=== PATIENT | male | born 1995 | race African-American/Black ===

== ENCOUNTER 2024-07-10 10:05 | Emergency (ER) | payer OTHER, SELFPAY ==
[2024-07-10 10:11] VITALS: BP 121/81; PULSE 100; RESP 16; TEMP 36.8; O2SAT 97; BMI 20.6
--- NOTE | 2024-07-10 10:22 | EDNOTE_ITS ---
ED General RME/HPI General Chief complaint: General Adult/Misc Complain Stated complaint: BILATERAL LEG PAIN Time Seen by Provider: 07/10/24 10:06 Arrival date/time: 07/10/24 10:05 Limitations: no limitations RME / HPI RME / HPI narrative: History of Present Illness (HPI): * Chief Complaint: The patient presents with bilateral lower extremity pain that has been ongoing for 3 days. The pain is described as worsening with walking. The patient reports a previous episode of back pain about 2 weeks ago, which spontaneously resolved. However, the current bilateral leg pain has been persistent for the past few days. * Onset and Character of Pain: The patient?s lower extremity pain started 3 days ago, with walking being a trigger. This suggests that the pain may be musculoskeletal or neurological in origin. * Relevant History: * The patient has a history of back pain that occurred two weeks ago and resolved without treatment. This might indicate a musculoskeletal issue or a nerve involvement (e.g., radiculopathy), though it could also be a clue to a more systemic or neurological cause. * The patient also receives monthly injections of haloperidol (an antipsychotic), with the second dose administered about a week ago. Haloperidol is commonly used for psychiatric conditions such as schizophrenia or for acute agitation, and it has side effects that could be relevant to this presentation. Potential Differential Diagnosis: The patient?s bilateral lower extremity pain could stem from a number of causes, including: * Extrapyramidal Symptoms (EPS) from Haloperidol: * Haloperidol can cause drug-induced parkinsonism or other extrapyramidal side effects (e.g., akathisia, dystonia), which can sometimes present as m uscle rigidity, pain, and bradykinesia. These effects are often seen with d opamine antagonists and could explain the patient's lower extremity pain. The fact that this pain began after the second dose of haloperidol raises concern for neuroleptic-induced muscle discomfort or rigidity. * Spinal or Nerve Root Involvement (Radiculopathy): * The prior history of back pain could suggest that the patient has a history of lumbar radiculopathy, where nerve compression in the spine (such as from a herniated disc or spinal stenosis) can radiate pain into the lower extremities. If the pain worsens with walking, it may be related to n eurogenic claudication or a spinal stenosis issue. * Peripheral Vascular Disease (PVD) or Claudication: * Intermittent claudication (pain with walking due to insufficient blood flow) could be a possibility if there are risk factors like smoking, diabetes, or atherosclerosis, though the patient hasn't mentioned these explicitly. * Musculoskeletal Strain: * The pain could be secondary to a musculoskeletal strain or overuse injury, though the bilateral nature and worsening with walking makes a musculoskeletal origin less likely than a neurological or vascular issue. * Medication Side Effects or Withdrawal: * Although haloperidol is not typically associated with direct withdrawal effects, it?s worth considering whether the medication is contributing to m uscle discomfort, tardive dyskinesia, or another medication-related side effect. If the patient has other medication changes or a history of inconsistent use, this could be a consideration. * Infection or Inflammatory Condition: * Infections like cellulitis or deep vein thrombosis (DVT) could present with bilateral pain, though these are less likely to cause pain only with walking and typically would present with additional symptoms like fever, redness, or swelling. * Electrolyte Imbalance or Neuropathy: * If the patient is on other medications or has an underlying electrolyte imbalance, such as hypokalemia, it could lead to muscle cramping and pain. Peripheral neuropathy (possibly due to diabetes or other causes) could also be a consideration if there are other risk factors or symptoms like tingling or numbness. Related Data Allergies Allergy/AdvReac Type Severity Reaction Status Date / Time No Known Allergies Allergy Verified 07/10/24 10:48 Review of Systems Review of Systems Systems Reviewed: All systems reviewed, normal except as documented ED Exam Narrative Physical exam: Skeletal survey is unremarkable. Patient is slow to ambulate, however his walking is normal. General Limitations: Present no limitations General appearance: Present alert and in no apparent distress Head Head exam: Present atraumatic Eye Eye exam: Present normal appearance ENT ENT exam: Present normal exam Chest Chest inspection: Present normal inspection Respiratory Respiratory exam: Present normal lung sounds bilaterally Cardiovascular Cardiovascular exam: Present regular rate and normal rhythm Abdominal Exam Abdominal exam: Present soft and normal bowel sounds Rectal Exam Rectal exam: Present deferred Extremities Exam Extremities exam: Present normal inspection, full ROM and other (No muscle spasm. No tenderness to palpation. Neurovascular status of both lower extremities are within normal limits. Essentially, examination of the bilateral lower extremities is unremarkable) Course Quality Measures none Orders Category Date Time Status CK [Creatine Kinase] Stat Lab 07/10/24 10:39 Completed CMP [Comprehensive Metabolic Panel] Stat Lab 07/10/24 10:39 Completed Magnesium Stat Lab 07/10/24 10:39 Completed Hyoscyamine Sulf [Levsin] Med 07/10/24 12:03 Discontinued 0.125 mg PO X1 ONE mg Hyd/Al Hyd/Carmelo Susp [Maalox Susp] Med 07/10/24 12:03 Discontinued 30 ml PO X1 ONE Vital Signs Vital signs: Vital Signs Temperature 98.2 F 07/10/24 10:11 Pulse Rate 100 07/10/24 10:11 Respiratory Rate 16 07/10/24 10:11 Blood Pressure 121/81 07/10/24 10:11 Pulse Oximetry (%) 97 07/10/24 10:11 Oxygen Delivery Method Room Air 07/10/24 10:11 [facility] Patient data External records reviewed:: [facility] previous records Clinical information provided by:: patient Social determinants that could affect healthcare access:: none Patient has the following chronic illnesses:: NA How is presenting disease/condition affected by chronic disease/condition?: no chronic disease Evaluation data The following diagnostics were reviewed and interpreted by me:: lab results Lab and/or radiology exams considered but not ordered:: Noted Interpretation Summary: Noted Medications Medications considered but not ordered:: NA Medication administrations:: Medication Administration History Discontinued Medications Al Hydrox/Mg Hydrox/Simethicone (Mg Hyd/Al Hyd/Carmelo (Maalox Reg) Susp 30 Ml Udc) 30 ml PO X1 ONE Stop: 07/10/24 12:04 Last Admin: 07/10/24 12:23 Dose: Not Given Documented By: ARF Non-Admin Reason: Wrong Patient Hyoscyamine (Hyoscyamine Sulf 0.125 Mg Tab.Subl) 0.125 mg PO X1 ONE Stop: 07/10/24 12:04 Last Admin: 07/10/24 12:23 Dose: Not Given Documented By: ARF Non-Admin Reason: Wrong Patient Noted Consultations Consultation(s) initiated? (list below): No Diagnosis Differential Diagnosis ED Complaint MDM: NA Most likely diagnosis given after review of the tests above:: Leg pain BL Admission Indicated Admission indicated?: not indicated Explain why admission is indicated or not indicated:: NA Admission Request Was there a request for admission?: No Disposition Plan Disposition Plan: Discharge Discharge Attestation Discharge Attestation: The patient and all family members were given an opportunity to ask questions and understood the discharge instructions. Discharge instructions specifically effects, indications for sooner follow up or return to the emergency department, and the expected course of current diagnosis. Patient condition: Stable Medical Decision Making Differential Diagnosis Differential Diagnosis: NA Lab Data 07/10/24 10:39 Labs: Lab Results 07/10/24 Range/Units 10:39 Sodium 137 (136-145) mMol/L Potassium 3.8 (3.4-5.1) mMol/L Chloride 102 (98-107) mMol/L Carbon Dioxide 28.4 (20.0-31.0) mMol/L Anion Gap 7 (7-16) BUN 14 (9-23) mg/dL Creatinine 0.8 (0.6-1.3) mg/dL Estim Creat Clear Calc 141.6 (>60) mL/min eGFR > 60 (60 - ) See Note BUN/Creatinine Ratio 18 (12-20) Ratio Glucose 135 H (74-106) mg/dL Calculated Osmolality 276 (275-295) Calcium 9.7 (8.3-10.6) mg/dL Corrected Calcium 9.7 (8.5-10.1) mg/dL Magnesium 2.0 (1.6-2.6) mg/dL Total Bilirubin 0.7 (0.3-1.2) mg/dL AST 13 (0-34) U/L ALT 12 (10-49) U/L Alkaline Phosphatase 76 (46-116) U/L Total Creatine Kinase 58 (34-171) U/L Total Protein 7.5 (5.7-8.2) gm/dL Albumin 4.4 (3.5-5.0) gm/dL Globulin 3.1 (2.3-3.5) gm/dL Albumin/Globulin Ratio 1.4 (1.2-2.2) Critical Care Time Critical Care Time Critical Care Time: Yes Total Critical Care Time (min.): 30 Attestation: The high probability of sudden, clinically significant deterioration in the patient?s condition required the highest level of my preparedness to intervene urgently. ? The services I provided to this patient were to treat and/or prevent clinically significant deterioration. Services included the following: chart data review, reviewing nursing notes and/or old charts, documentation time, beauty consultant collaboration regarding findings and treatment options, medication orders and management, direct patient care, vital sign assessments and ordering, interpreting and reviewing diagnostic studies and lab tests. ? Aggregate critical care time includes only time during which I was engaged in work directly related to the patient?s care, as described above, whether at bedside or elsewhere in the Emergency Department. It did not include time spent performing other reported procedures or the services of residents, students, nurses or physician assistants. Discharge Plan Plan Patient Disposition: Usp/Court/Law Patient condition on transfer: Stable Prescriptions/Referrals Referrals: No Primary/Family,Physician [Primary Care Provider] - In 1 week Problem List Clinical Impression: Bilateral leg pain Patient/Caregiver Discharge Instructions Discharge Activity: activity as tolerated Education Materials: Complementary [facility] for Pain Print Language: Czech
[2024-07-10 11:10] LABS: Alanine Aminotransferase 12 U/L (10-49); Albumin, Serum 4.4 gm/dL (3.5-5.0); Albumin/Globulin Ratio 1.4 (1.2-2.2); Alkaline Phosphatase 76 U/L (46-116); Anion Gap 7 (7-16); Aspartate Amino Transferase 13 U/L (0-34); BUN/Creatinine Ratio 18 Ratio (12-20); Bilirubin,Total 0.7 mg/dL (0.3-1.2); Blood Urea Nitrogen 14 mg/dL (9-23); Calcium 9.7 mg/dL (8.3-10.6); Calcium (Corrected) 9.7 mg/dL (8.5-10.1); Carbon Dioxide 28.4 mMol/L (20.0-31.0); Chloride 102 mMol/L (98-107); Creatine Kinase 58 U/L (34-171); Creatinine (Component) 0.8 mg/dL (0.6-1.3); Estimated Creatinine Clearance 141.6 mL/min (>60); Globulin 3.1 gm/dL (2.3-3.5); Glucose 135 mg/dL (74-106); Osmolality,Calculated 276 (275-295); Potassium 3.8 mMol/L (3.4-5.1); Sodium 137 mMol/L (136-145); Total Protein 7.5 gm/dL (5.7-8.2); eGFR > 60 See Note
[2024-07-10 13:05] VITALS: BP 114/73; PULSE 112; RESP 18; TEMP 37.3; O2SAT 98
== END 2024-07-10 14:12 ==
PROVIDERS: Emergency Provider Emergency Medicine
DX: M79.604 Pain in right leg (principal); M79.605 Pain in left leg
CPT/HCPCS: 36415; 80053; 82550; 83735; 99283

== ENCOUNTER 2024-07-13 17:30 | Emergency (ER) | payer OTHER, SELFPAY ==
[2024-07-13] VITALS (7 sets, daily range): BP systolic 109–129; BP diastolic 71–83; PULSE 96–123; RESP 17–20; TEMP 36.8–36.9; O2SAT 95–100
--- NOTE | 2024-07-13 17:53 | EDNOTE_ITS ---
ED General RME/HPI General Chief complaint: General Adult/Misc Complain Stated complaint: ABNORMAL LABS Time Seen by Provider: 07/13/24 17:50 Arrival date/time: 07/13/24 17:30 CC: Decreased appetite constipation elevated white blood cell count and anemia. HPI patient presents the ER with a guard and a psych counselor, as the patient is a psychiatric incarcerated patient. The patient can be combative at times as warned by the psychiatric counselor. Patient denies fever chills chest pain shortness of breath or difficulty breathing states he urinated this morning states he has not been hungry for meals in the past several days. Chart work from the facility show the patient had a leukocytosis of 15,000 and hemoglobin of 9. Related Data Allergies Allergy/AdvReac Type Severity Reaction Status Date / Time No Known Allergies Allergy Verified 07/10/24 10:48 Review of Systems Review of Systems Narrative Review of Systems: GEN: No fever, no chills, no weight loss EYES: No discharge, no visual changes, no pain HEENT: No ear pain, no congestion, no sore throat PULM: No shortness of breath, no cough, no congestion CV: No chest pain, no dyspnea on exertion, no palpitations GI: No nausea, no vomiting, no diarrhea, no pain, no constipation : No frequency, no urgency, no dysuria MUSC/SKEL: No joint pain, no back pain SKIN: No rash PSYCH: No hallucinations, no depression HEME/LYMPH: No easy bleeding or bruising tendencies NEURO: No weakness, no headache Past Medical History Social History SMOKING STATUS: Never smoker ED Exam Narrative Physical exam: [General: Thin but not emaciated appears not in any acute distress Head normocephalic HEENT: Within acceptable limits Neck is supple nontender Chest equal chest rise nontender to palpation Respiratory: Clear to auscultation no wheezes crackles or rubs CV: Rate rhythm is regular no murmurs rubs or clicks Abdomen is soft nontender no masses positive bowel sounds all 4 quadrants Back: No CVA tenderness no spinous process tenderness from cervical spine thoracic and lumbar spine Skin: Intact no petechiae rash induration ulceration or crepitus Extremities: Moving all extremity against resistance cap refill less than 2 seconds neurosensory intact Neuro: Awake alert oriented x3 Glascow coma 15 no focal deficits] Course Quality Measures none Orders Category Date Time Status CT Screening NOW Care 07/13/24 19:09 Active Enema Administration NOW Care 07/13/24 21:[address] angio chest Stat Exams 07/13/24 19:09 Completed CBC Stat Lab 07/13/24 16:03 Completed CMP [Comprehensive Metabolic Panel] Stat Lab 07/13/24 16:03 Completed Creatine Kinase Stat Lab 07/13/24 16:03 Completed Urinalysis Stat Lab 07/13/24 19:35 Completed Sodium Chloride 0.9% 1000 ml [Ns] 1,000 ml Med 07/13/24 17:52 Discontinued IV 999 mls/hr Sodium Chloride 0.9% 1000 ml [Ns] 1,000 ml Med 07/13/24 17:52 Discontinued IV 999 mls/hr Vital Signs Vital signs: Vital Signs Temperature 98.4 F 07/13/24 17:32 Pulse Rate 123 H 07/13/24 17:32 Respiratory Rate 18 07/13/24 17:32 Blood Pressure 112/75 07/13/24 17:32 Pulse Oximetry (%) 95 07/13/24 17:32 Oxygen Delivery Method Room Air 07/13/24 17:[address] [facility] Patient data External records reviewed:: [facility] previous records and EMS form Clinical information provided by:: patient, law enforcement and none (Psychiatric counselor) Social determinants that could affect healthcare access:: mental health Patient has the following chronic illnesses:: No significant medical past medical history How is presenting disease/condition affected by chronic disease/condition?: u neffected by Evaluation data The following diagnostics were reviewed and interpreted by me:: lab results Lab and/or radiology exams considered but not ordered:: CBC shows a mild leukocytosis of 14.2 there is an H&H of 9 and 30.4 with no thrombocytopenia. MCV, MCH RDW are all normal. There are no maxillofacial prior blood draws to compare to. I do not know if this is a baseline anemia or not. From a blood draw earlier today, the patient's ESR is 92, with a D-dimer greater than 32,000. CTA chest is negative for PE. CMP shows no significant electrolyte imbalances renal impairment transaminitis or T. bili elevation Creatinine kinase is mildly elevated 171 but not significantly high. Interpretation Summary: CBC shows a mild leukocytosis, there is no fever or other pathologic explanation for leukocytosisother than D marginalization. Patient has no profound explanation for the anemia, the patient is refusing enema, and rectal exam, PE is negative for pulmonary emboli. The patient is afebrile nontoxic-appearing not in any acute distress with stable vital signs other than mild tachycardia in the 100s. Patient is constipated but is refusing enema, rectal exam, at this time the patient can be discharged back to try mag citrate or other stool softeners at the facility. Medications Medications considered but not ordered:: None Medication administrations:: Medication Administration History Discontinued Medications Sodium Chloride (Ns) 1,000 mls @ 999 mls/hr IV .Q1H1M ONE Stop: 07/13/24 18:52 Last Infusion: 07/13/24 19:15 Dose: Infused Documented By: Admin: 07/13/24 18:13 Dose: 999 mls/hr Documented By: EF Sodium Chloride (Ns) 1,000 mls @ 999 mls/hr IV .Q1H1M ONE Stop: 07/13/24 18:52 Last Infusion: 07/13/24 19:15 Dose: Infused Documented By: Admin: 07/13/24 18:14 Dose: 999 mls/hr Documented By: EF None Consultations Consultation(s) initiated? (list below): No Diagnosis Differential Diagnosis ED Complaint MDM: Anemia, leukocytosis constipation Most likely diagnosis given after review of the tests above:: Anemia leukocytosis constipation Admission Indicated Admission indicated?: not indicated Explain why admission is indicated or not indicated:: Stable for outpatient follow-up Admission Request Was there a request for admission?: No Disposition Plan Disposition Plan: Discharge Discharge Attestation Discharge Attestation: The patient and all family members were given an opportunity to ask questions and understood the discharge instructions. Discharge instructions specifically effects, indications for sooner follow up or return to the emergency department, and the expected course of current diagnosis. Patient condition: Stable Medical Decision Making Differential Diagnosis Differential Diagnosis: Anemia, leukocytosis constipation Lab Data 07/13/24 16:03 07/13/24 16:03 Labs: Lab Results 07/13/24 07/13/24 Range/Units 16:03 19:35 WBC 14.2 H (3.8-10.6) Thou/mm3 RBC 3.63 L (4.50-5.90) Miln/mm3 Hgb 9.9 L (13.5-16.0) g/dL Hct 30.4 L (41.0-53.0) % MCV 84 (80-100) fL MCH 27.3 (25.0-35.0) pg MCHC 32.6 (31.0-37.0) g/dl RDW Std Deviation 41.1 (35.1-43.9) fL Plt Count 280 (140-440) Thou/mm3 Neut % (Auto) 83 H (37-80) % Lymph % (Auto) 6 L (10-50) % Shannon % (Auto) 10 (0-12) % Eos % (Auto) 0 (0-10) % Baso % (Auto) 0 (0-2.5) % Neut # (Auto) 11.8 H (1.8-7.7) Thou/mm3 Lymph # (Auto) 0.9 L (1.0-4.8) Thou/mm3 Shannon # (Auto) 1.4 H (0.0-0.8) Thou/mm3 Eos # (Auto) 0.0 (0.0-0.5) Thou/mm3 Baso # (Auto) 0.0 (0.0-0.2) Thou/mm3 Immature Gran # (Auto) 0.06 H (0.00-0.00) Thou/mm3 Absolute Nucleated RBC 0.00 (0.00-0.00) Thou/mm3 Immature Gran % 0 (0-0) % Nucleated RBC % 0 (0) /100 WBC Sodium 136 (136-145) mMol/L Potassium 3.9 (3.4-5.1) mMol/L Chloride 99 (98-107) mMol/L Carbon Dioxide 29.5 (20.0-31.0) mMol/L Anion Gap 8 (7-16) BUN 19 (9-23) mg/dL Creatinine 0.8 (0.6-1.3) mg/dL Estim Creat Clear Calc 137.3 (>60) mL/min eGFR > 60 (60 - ) See Note BUN/Creatinine Ratio 24 H (12-20) Ratio Glucose 100 (74-106) mg/dL Calculated Osmolality 274 L (275-295) Calcium 9.6 (8.3-10.6) mg/dL Corrected Calcium 9.6 (8.5-10.1) mg/dL Total Bilirubin 0.8 (0.3-1.2) mg/dL AST 26 (0-34) U/L ALT 20 (10-49) U/L Alkaline Phosphatase 85 (46-116) U/L Total Creatine Kinase 181 H D (34-171) U/L Total Protein 8.3 H (5.7-8.2) gm/dL Albumin 4.7 (3.5-5.0) gm/dL Globulin 3.6 H (2.3-3.5) gm/dL Albumin/Globulin Ratio 1.3 (1.2-2.2) Ur Collection Type Clean Catch Urine Color Yellow (Lt Yel-Yel) Urine Clarity Clear (Clear/Hazy) Urine pH 6.0 (5.0-7.0) Ur Specific [place] 1.035 (1.001-1.035) Urine Protein 1+ A (Neg - Trace) Urine Glucose (UA) Negative (Negative) Urine Ketones Negative (Negative) Urine Blood Negative (Negative) Urine Nitrite Negative (Negative) Urine Bilirubin Negative (Negative) Urine Urobilinogen (Auto) 2.0 (0.0-1.0) mg/dL Ur Leukocyte Esterase Negative (Negative) Urine RBC 6 H (0-3) /hpf Urine WBC 4 (0-5) /hpf Ur Squamous Epith Cells 1 (0-5) /hpf Urine Bacteria Rare (None) Hyaline Casts < 1 (0-1) /hpf Discharge Plan Plan Patient Disposition: HOME (Self Care) Patient condition on transfer: Stable Prescriptions/Referrals Referrals: Richard Goyal MD [Primary Care Provider] - In 1 week Problem List Clinical Impression: Anemia, Leukocytosis, Constipation Patient/Caregiver Discharge Instructions Education Materials: Anemia, Treating Constipation Print Language: South African Stand Alone Forms: Elle Award Info., Patient Portal Info Letter PA/DAY CARE CENTER DIRECTOR Supervising Physician PA/DAY CARE CENTER DIRECTOR Supervising Physician: Osito Scott ENP
[2024-07-13] MEDS: SODIUM CHLORIDE 0.9% 1000 ML 1,000 ML 999 ML IV ×2 (18:13→18:14)
--- NOTE | 2024-07-13 18:33 | PC.NURSE ---
[facility] at [facility] facility to be evaluated for abnormal labs and for further evaluation of lethargy, tachycardia, leukocytosis, acute dystonia. new orders received from Osito at bedside.
[2024-07-13 18:39] LABS: Basophils % (Auto) 0 % (0-2.5); Eosinophils % (Auto) 0 % (0-10); Hematocrit 30.4 % (41.0-53.0); Hemoglobin 9.9 g/dL (13.5-16.0); Immature Granulocytes % (Auto) 0 % (0-0); Immature Granulocytes Auto 0.06 Thou/mm3 (0.00-0.00); Lymphocytes # (Auto) 0.9 Thou/mm3 (1.0-4.8); Lymphocytes % (Auto) 6 % (10-50); Mean Corpuscular HGB Conc 32.6 g/dl (31.0-37.0); Mean Corpuscular Hemoglobin 27.3 pg (25.0-35.0); Mean Corpuscular Volume 84 fL (80-100); Monocytes # (Auto) 1.4 Thou/mm3 (0.0-0.8); Monocytes % (Auto) 10 % (0-12); Neutrophils # (Auto) 11.8 Thou/mm3 (1.8-7.7); Neutrophils % (Auto) 83 % (37-80); Nucleated Red Blood Cell % 0 /100 WBC (0); Platelet Count 280 Thou/mm3 (140-440); RDW Standard Deviation 41.1 fL (35.1-43.9); Red Blood Count 3.63 Miln/mm3 (4.50-5.90); White Blood Count 14.2 Thou/mm3 (3.8-10.6)
[2024-07-13 18:59] LABS: Alanine Aminotransferase 20 U/L (10-49); Albumin, Serum 4.7 gm/dL (3.5-5.0); Albumin/Globulin Ratio 1.3 (1.2-2.2); Alkaline Phosphatase 85 U/L (46-116); Anion Gap 8 (7-16); Aspartate Amino Transferase 26 U/L (0-34); BUN/Creatinine Ratio 24 Ratio (12-20); Bilirubin,Total 0.8 mg/dL (0.3-1.2); Blood Urea Nitrogen 19 mg/dL (9-23); Calcium 9.6 mg/dL (8.3-10.6); Calcium (Corrected) 9.6 mg/dL (8.5-10.1); Carbon Dioxide 29.5 mMol/L (20.0-31.0); Chloride 99 mMol/L (98-107); Creatine Kinase 181 U/L (34-171); Creatinine (Component) 0.8 mg/dL (0.6-1.3); Estimated Creatinine Clearance 137.3 mL/min (>60); Globulin 3.6 gm/dL (2.3-3.5); Glucose 100 mg/dL (74-106); Osmolality,Calculated 274 (275-295); Potassium 3.9 mMol/L (3.4-5.1); Sodium 136 mMol/L (136-145); Total Protein 8.3 gm/dL (5.7-8.2); eGFR > 60 See Note
--- NOTE | 2024-07-13 19:09 | XR_ITS ---
Examination: CTA chest with intravenous contrast 2-D reconstructions 3-D reconstructions, vascular Date and time of exam: July 13, 2024 1944 hrs. Indications: Chest pain shortness of breath elevated d-dimer today, clinical diagnosis pulmonary emboli CTDI: vol (mGy) 14.2 DLP: (mGycm) 310 Technique: Multiple axial sections of the thorax have been obtained. 3 mm slice thickness, from below the hemidiaphragms to above the apices of the lungs. Mediastinal and lung density settings have been obtained. 2-D sagittal and coronal reconstructions. 3-D angiographic renderings, 3-D volume renderings, 3D post processing, vascular maximum intensity projections obtained. Contrast administered is 100 cc Isovue-370 intravenous. Low dose protocols were performed. One or more of the following dose reduction techniques were used; automated exposure control, adjustment of the mA and/or KV according to patient size, use of iterative reconstruction technique. Findings: No thoracic aortic aneurysm dilatation Pulmonary artery segments are not enlarged No pulmonary artery emboli No pneumonia or pulmonary edema No focal liver or splenic lesions Contracted gallbladder Aorta normal size No hydronephrosis Abundant air and stool throughout the colon No pancreatic mass Impression: Negative for pulmonary artery emboli No pneumonia, pulmonary edema or pleural disease
[2024-07-13 19:38] LABS: Collection Type, Urine Clean Catch
--- NOTE | 2024-07-13 19:44 | PC.NURSE ---
Pt to farm equipment service technician at this time via [facility].
[2024-07-13 19:46] LABS: Bacteria,Urine Rare; Bilirubin,Urine Negative (Negative); Blood,Urine Negative (Negative); Clarity,Urine Clear (Clear/Hazy); Color,Urine Yellow (Lt Yel-Yel); Glucose, Urine Negative (Negative); Hyaline Casts,Urine < 1 /hpf (0-1); Ketones,Urine Negative (Negative); Leukocyte Esterase,Urine Negative (Negative); Nitrite,Urine Negative (Negative); Protein,Urine 1+ (Neg - Trace); RBC,Urine 6 /hpf (0-3); Specific Gravity,Urine 1.035 (1.001-1.035); Squamous Epithelial Cell,Urine 1 /hpf (0-5); WBC,Urine 4 /hpf (0-5)
== END 2024-07-13 23:04 | disposition home or self-care (01) ==
PROVIDERS: Registered Nurse General Practice; Emergency Provider Emergency Medicine; PCP Family Medicine
DX: D64.9 Anemia, unspecified (principal); D72.829 Elevated white blood cell count, unspecified; K59.00 Constipation, unspecified
CPT/HCPCS: 36415; 71275; 80053; 81001; 82550; 85025; 96360; 99285; A4649; J7030; Q9967

== ENCOUNTER → 2024-07-13 | Outpatient (CLI) | payer OTHER, SELFPAY ==
[2024-07-13 17:53] LABS: LDH (Lactate Dehydrogenase) 241 U/L (120-246)
[2024-07-13 17:54] LABS: Sed Rate (ESR) 92 mm/hr (0-15)
[2024-07-13 17:56] LABS: D-Dimer > 3820 ng/mL (<600)
== END | disposition home or self-care (01) ==
LOC: SLDO 16:44
PROVIDERS: PCP Family Medicine; Referring Provider Family Medicine; Visit Provider Family Medicine
DX: M62.459 Contracture of muscle, unspecified thigh (principal)
CPT/HCPCS: 36415; 83615; 85379; 85652

== ENCOUNTER → 2024-07-14 | Outpatient (CLI) | payer OTHER, SELFPAY | END | disposition home or self-care (01) | LOC: SLDO 16:51 | PROVIDERS: PCP Family Medicine; Referring Provider Family Medicine; Visit Provider Family Medicine | DX: D72.829 Elevated white blood cell count, unspecified (principal) | CPT/HCPCS: 36415; 87040; 87081 ==

== ENCOUNTER → 2024-07-15 | Outpatient (CLI) | payer OTHER, SELFPAY ==
[2024-07-15 16:35] LABS: OBS Card Expiration Date 2026-09; OBS Card Lot # 23001; OBS Developer Expiration Date 2026-09; OBS Developer Lot # 23003; OBS Performed By SCARJ2; OBS QC OK? Yes
[2024-07-15 16:37] LABS: Occult Blood, Stool Negative (Negative)
[2024-07-16 10:32] LABS: Iron 18 mcg/dL (65-175); Total Iron Binding Capacity 194 mcg/dL (250-425)
[2024-07-16 15:39] LABS: Ferritin 560 ng/mL (10.5-307.3)
[2024-07-16 15:52] LABS: Vitamin B12 305 pg/mL (211-911)
== END | disposition home or self-care (01) ==
LOC: SLDO 16:08
PROVIDERS: PCP Family Medicine; Referring Provider Family Medicine; Visit Provider Family Medicine
DX: D64.9 Anemia, unspecified (principal); D72.829 Elevated white blood cell count, unspecified
CPT/HCPCS: 36415; 82270; 82607; 82728; 83540; 83550; 87086

== ENCOUNTER → 2024-07-16 | Outpatient (CLI) | payer OTHER, SELFPAY ==
[2024-07-16 14:01] LABS: Basophils % (Auto) 0 % (0-2.5); Eosinophils # (Auto) 0.1 Thou/mm3 (0.0-0.5); Eosinophils % (Auto) 1 % (0-10); Hematocrit 27.4 % (41.0-53.0); Hemoglobin 8.9 g/dL (13.5-16.0); Immature Granulocytes % (Auto) 1 % (0-0); Immature Granulocytes Auto 0.17 Thou/mm3 (0.00-0.00); Lymphocytes % (Auto) 8 % (10-50); Mean Corpuscular HGB Conc 32.5 g/dl (31.0-37.0); Mean Corpuscular Hemoglobin 27.7 pg (25.0-35.0); Mean Corpuscular Volume 85 fL (80-100); Monocytes # (Auto) 1.1 Thou/mm3 (0.0-0.8); Monocytes % (Auto) 9 % (0-12); Neutrophils % (Auto) 81 % (37-80); Nucleated Red Blood Cell % 0 /100 WBC (0); Platelet Count 400 Thou/mm3 (140-440); Red Blood Count 3.21 Miln/mm3 (4.50-5.90); White Blood Count 12.4 Thou/mm3 (3.8-10.6)
[2024-07-16 14:14] LABS: Sed Rate (ESR) 73 mm/hr (0-15)
[2024-07-16 14:23] LABS: Alanine Aminotransferase 34 U/L (10-49); Albumin/Globulin Ratio 1.4 (1.2-2.2); Alkaline Phosphatase 77 U/L (46-116); Anion Gap 7 (7-16); Aspartate Amino Transferase 41 U/L (0-34); BUN/Creatinine Ratio 18 Ratio (12-20); Bilirubin,Total 0.5 mg/dL (0.3-1.2); Blood Urea Nitrogen 11 mg/dL (9-23); Calcium 8.8 mg/dL (8.3-10.6); Calcium (Corrected) 8.8 mg/dL (8.5-10.1); Carbon Dioxide 28.3 mMol/L (20.0-31.0); Chloride 103 mMol/L (98-107); Creatine Kinase 371 U/L (34-171); Creatinine (Component) 0.6 mg/dL (0.6-1.3); Globulin 2.9 gm/dL (2.3-3.5); Glucose 95 mg/dL (74-106); Osmolality,Calculated 275 (275-295); Potassium 4.3 mMol/L (3.4-5.1); Sodium 138 mMol/L (136-145); Total Protein 6.9 gm/dL (5.7-8.2); eGFR > 60 See Note
[2024-07-16 14:53] LABS: D-Dimer > 3820 ng/mL (<600)
== END | disposition home or self-care (01) ==
LOC: SLAB 12:54
PROVIDERS: Referring Provider Family Medicine; Visit Provider Family Medicine
DX: Z03.89 Encounter for observation for other suspected diseases and conditions ruled out (principal)
CPT/HCPCS: 36415; 80053; 82550; 85025; 85379; 85652

== ENCOUNTER → 2024-07-17 | Outpatient (CLI) | payer OTHER, SELFPAY ==
[2024-07-17 12:53] LABS: Collection Type, Urine Clean Catch
[2024-07-17 13:12] LABS: Basophils % (Auto) 0 % (0-2.5); Eosinophils # (Auto) 0.2 Thou/mm3 (0.0-0.5); Eosinophils % (Auto) 2 % (0-10); Immature Granulocytes % (Auto) 2 % (0-0); Immature Granulocytes Auto 0.21 Thou/mm3 (0.00-0.00); Lymphocytes # (Auto) 0.9 Thou/mm3 (1.0-4.8); Lymphocytes % (Auto) 8 % (10-50); Mean Corpuscular HGB Conc 32.3 g/dl (31.0-37.0); Mean Corpuscular Hemoglobin 27.2 pg (25.0-35.0); Mean Corpuscular Volume 84 fL (80-100); Monocytes # (Auto) 1.2 Thou/mm3 (0.0-0.8); Monocytes % (Auto) 10 % (0-12); Neutrophils # (Auto) 9.4 Thou/mm3 (1.8-7.7); Neutrophils % (Auto) 79 % (37-80); Nucleated Red Blood Cell % 0 /100 WBC (0); Platelet Count 443 Thou/mm3 (140-440); RDW Standard Deviation 42.6 fL (35.1-43.9); Red Blood Count 3.09 Miln/mm3 (4.50-5.90); White Blood Count 11.9 Thou/mm3 (3.8-10.6)
[2024-07-17 13:38] LABS: Alanine Aminotransferase 34 U/L (10-49); Albumin, Serum 3.6 gm/dL (3.5-5.0); Albumin/Globulin Ratio 1.4 (1.2-2.2); Alkaline Phosphatase 70 U/L (46-116); Anion Gap 7 (7-16); Aspartate Amino Transferase 34 U/L (0-34); BUN/Creatinine Ratio 16 Ratio (12-20); Bilirubin,Total 0.4 mg/dL (0.3-1.2); Blood Urea Nitrogen 8 mg/dL (9-23); Calcium 8.2 mg/dL (8.3-10.6); Calcium (Corrected) 8.5 mg/dL (8.5-10.1); Carbon Dioxide 27.5 mMol/L (20.0-31.0); Chloride 105 mMol/L (98-107); Creatinine (Component) 0.5 mg/dL (0.6-1.3); Globulin 2.6 gm/dL (2.3-3.5); Glucose 93 mg/dL (74-106); Osmolality,Calculated 275 (275-295); Potassium 3.8 mMol/L (3.4-5.1); Sodium 139 mMol/L (136-145); Total Protein 6.2 gm/dL (5.7-8.2); eGFR > 60 See Note
[2024-07-17 13:43] LABS: Hemoglobin 8.4 g/dL (13.5-16.0)
[2024-07-17 13:46] LABS: Bilirubin,Urine Negative (Negative); Blood,Urine Negative (Negative); Clarity,Urine Clear (Clear/Hazy); Color,Urine Lt-Yellow (Lt Yel-Yel); Glucose, Urine Negative (Negative); Ketones,Urine Negative (Negative); Leukocyte Esterase,Urine Negative (Negative); Nitrite,Urine Negative (Negative); Protein,Urine Negative (Neg - Trace); RBC,Urine < 1 /hpf (0-3); Specific Gravity,Urine 1.013 (1.001-1.035); Squamous Epithelial Cell,Urine < 1 /hpf (0-5); Urobilinogen,Urine Negative mg/dL (0.0-1.0); WBC,Urine 1 /hpf (0-5)
[2024-07-17 14:00] LABS: Syphilis Reactive (Nonreactive)
[2024-07-17 14:01] LABS: MHATP/TP-PA* See Sep Rpt
[2024-07-17 14:30] LABS: Cocci Serology, IgM Negative (Negative)
[2024-07-19 14:17] LABS: Cocci Serology, IgG Negative (Negative)
== END | disposition home or self-care (01) ==
PROVIDERS: PCP Family Medicine; Referring Provider Family Medicine; Visit Provider Family Medicine
DX: D72.829 Elevated white blood cell count, unspecified (principal)
CPT/HCPCS: 36415; 80053; 81001; 85025; 86171; 86331; 86635; 86780; 87086

== ENCOUNTER 2024-07-19 18:38 | Inpatient (IN) | payer OTHER, SELFPAY ==
[2024-07-19 18:41] VITALS: BP 124/77; PULSE 100; RESP 19; TEMP 36.8; O2SAT 98
--- NOTE | 2024-07-19 18:51 | XR_ITS ---
Examination: AP chest single view Technique: AP portable upright chest single view Exam date and time: July 19, 2024 1935 hrs. Indications: Chest pain today Findings: The film is rotated RPO Normal heart size Mild elevation left hemidiaphragm No lobar pneumonia or pulmonary edema Impression: No lobar pneumonia or pulmonary edema
--- NOTE | 2024-07-19 18:51 | EKG_ITS ---
[facility] Test Date: 2024-07-19 Pat Name: EDGARDO GOMEZ Department: Room: - Gender: Male Aircraft Communicator: : 1995 Requested By: Ro Santana Order Number: [id number] Reading MD: Ro Santana Measurements Intervals [place] Rate: 101 P: 58 ME: 107 QRS: 78 QRSD: 89 T: 37 QT: 338 QTc: 438 Interpretive Statements SINUS TACHYCARDIA WITH SHORT ME INTERVAL NONSPECIFIC T-WAVE ABNORMALITY ABNORMAL RHYTHM ECG No previous ECG available for comparison /[id number]/[email or web address]/[id number]
[2024-07-19 19:15] VITALS: BP 125/78; PULSE 100; RESP 18; TEMP 37; O2SAT 100
[2024-07-19 19:18] VITALS: PULSE 100; RESP 21; O2SAT 100; BMI 22.5
[2024-07-19 19:21] VITALS: BP 125/78; PULSE 96; RESP 20; O2SAT 100
[2024-07-19 19:30] LABS: Basophils % (Auto) 0 % (0-2.5); Eosinophils # (Auto) 0.3 Thou/mm3 (0.0-0.5); Eosinophils % (Auto) 2 % (0-10); Hematocrit 27.1 % (41.0-53.0); Immature Granulocytes % (Auto) 2 % (0-0); Immature Granulocytes Auto 0.23 Thou/mm3 (0.00-0.00); Lymphocytes # (Auto) 1.6 Thou/mm3 (1.0-4.8); Lymphocytes % (Auto) 14 % (10-50); Mean Corpuscular HGB Conc 31.4 g/dl (31.0-37.0); Mean Corpuscular Hemoglobin 26.8 pg (25.0-35.0); Mean Corpuscular Volume 86 fL (80-100); Monocytes % (Auto) 8 % (0-12); Neutrophils # (Auto) 8.3 Thou/mm3 (1.8-7.7); Neutrophils % (Auto) 73 % (37-80); Nucleated Red Blood Cell % 0 /100 WBC (0); Platelet Count 534 Thou/mm3 (140-440); RDW Standard Deviation 43.1 fL (35.1-43.9); Red Blood Count 3.17 Miln/mm3 (4.50-5.90); White Blood Count 11.4 Thou/mm3 (3.8-10.6)
[2024-07-19 19:48] LABS: B-Type Natriuretic Peptide 37 pg/mL (0-100); INR 1.1 (0.9-1.3); Partial Thromboplastin Time 29.4 Seconds (22.0-36.0); Prothrombin Time 12.3 Seconds (9.0-12.2)
[2024-07-19 19:49] LABS: Hemoglobin 8.5 g/dL (13.5-16.0)
[2024-07-19 19:50] LABS: Alanine Aminotransferase 41 U/L (10-49); Albumin, Serum 3.9 gm/dL (3.5-5.0); Albumin/Globulin Ratio 1.2 (1.2-2.2); Alkaline Phosphatase 77 U/L (46-116); Anion Gap 7 (7-16); Aspartate Amino Transferase 41 U/L (0-34); BUN/Creatinine Ratio 15 Ratio (12-20); Bilirubin,Total 0.4 mg/dL (0.3-1.2); Blood Urea Nitrogen 9 mg/dL (9-23); Calcium 8.9 mg/dL (8.3-10.6); Carbon Dioxide 30.6 mMol/L (20.0-31.0); Chloride 102 mMol/L (98-107); Creatinine (Component) 0.6 mg/dL (0.6-1.3); Globulin 3.2 gm/dL (2.3-3.5); Glucose 93 mg/dL (74-106); Lipase 49 U/L (12-53); Magnesium 2.3 mg/dL (1.6-2.6); Osmolality,Calculated 278 (275-295); Sodium 140 mMol/L (136-145); Total Protein 7.1 gm/dL (5.7-8.2); Troponin I < 0.002 ng/mL (0.0-0.045); eGFR > 60 See Note
--- NOTE | 2024-07-19 20:02 | PD.EDADULT ---
ED General RME/HPI General Chief complaint: General Adult/Misc Complain Stated complaint: LOW HEMOGLOBIN, BTS Time Seen by Provider: 07/19/24 18:48 Source: patient and EMS Arrival date/time: 07/19/24 18:38 Mode of arrival: EMS Limitations: no limitations RME / HPI RME / HPI narrative: DR. EISENBERG MAIN ED EVALUATION: 29 year old male client from [facility] with past medical history significant for anemia and schizophrenia presents to the Emergency Department BIBA with complaint of bilateral lower extremity pain and possible bilateral DVT per ultrasound done at [facility]. Pain is described as squeezing like sensation near his joints but only to the lower extremities. Patient denies any other medical complaints or associated symptoms. Patient recently incarcerated in [facility]; transferred to [facility] about 3 months ago and has been there since. Related Data Home Medications ?Medication ?Instructions ?Recorded ?Confirmed acetaminophen 650 mg tablet 650 mg PO Q6H PRN Fever Or Pain 07/20/24 07/20/24 clonidine HCl 0.1 mg-0.2 mg 0.2 mg PO DAILY 07/20/24 07/20/24 tablet,extended release dose pack cyclobenzaprine 10 mg tablet 10 mg PO Q8HR PRN leg cramps 07/20/24 07/20/24 diphenhydramine HCl 25 mg capsule 25 mg PO BID 07/20/24 07/20/24 docusate sodium 100 mg capsule 200 mg PO BID 07/20/24 07/20/24 lactulose 10 gram/15 mL oral syrup 10 g PO BID 07/20/24 07/20/24 paliperidone palmitate 117 mg/0.75 117 mg QMONTH 07/20/24 07/20/24 mL intramuscular syringe polyethylene glycol 3350 17 gram 17 g PO BID 07/20/24 07/20/24 oral powder packet (Miralax) Previous Rx's ?Medication ?Instructions ?Recorded rivaroxaban 15 mg (42)-20 mg (9) See Rx Instructions PO .COMPLEX 07/21/24 tablets in a starter pack (Xarelto #51 tabs DVT-PE Treatment 30-Day Starter) Allergies Allergy/AdvReac Type Severity Reaction Status Date / Time No Known Allergies Allergy Verified 07/10/24 10:48 Review of Systems Review of Systems Systems Reviewed: All systems reviewed, normal except as documented Narrative Review of Systems: GEN: No fever, no chills, no weight loss EYES: No discharge, no visual changes, no pain HEENT: No ear pain, no congestion, no sore throat PULM: No shortness of breath, no cough, no congestion CV: No chest pain, no dyspnea on exertion, no palpitations GI: No nausea, no vomiting, no diarrhea, no pain, no constipation : No frequency, no urgency and no dysuria MUSC/SKEL: No joint pain, no back pain SKIN: No rash PSYCH: No hallucinations, no depression HEME/LYMPH: No easy bleeding or bruising tendencies NEURO: No weakness, no headache Past Medical History Past Medical History REPRODUCTIVE: Positive Syphilis PSYCHO/SOCIAL: Positive Schizophrenia Family History FAMILY HISTORY: Positive Family Psychiatric Problems Social History SMOKING STATUS: Never smoker SUBSTANCE USE: does not use ALCOHOL: Never ED Exam Narrative Physical exam: GENERAL APPEARANCE: alert and oriented x 4, well-developed, well-nourished, no acute distress VITALS: All vitals were reviewed and the pulse ox is 100% on room air, which is normal according to my interpretation. HEENT: Normocephalic, atraumatic; pupils equal, round, reactive to light; EOMI; mucous membranes pink, moist; oropharynx clear NECK: Supple LUNGS: CTABL; no wheezes, no rales, no rhonchi HEART: Regular rate, regular rhythm; normal S1, S2; no murmurs ABDOMEN: non distended; normal BS; soft, no tenderness, no guarding, no rebound; no masses, no organomegaly, no hernia BACK: no CVA tenderness EXTREMITIES: atraumatic; no edema NEUROLOGIC: awake; alert and oriented x4; cranial nerves II-XII grossly intact; no focal sensory or motor deficits PSYCHIATRIC: appropriate mood and affect SKIN: warm, dry, normal color; no rashes General Limitations: Present no limitations Course Quality Measures none Orders Category Date Time Status Patient Condition Routine Admission 07/20/24 02:06 Ordered COVID-19 Screening Questionnaire NOW Care 07/20/24 00:11 Completed 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 START 00 Care 07/19/24 18:51 Completed Decision to Admit X1 Care 07/20/24 00:11 Completed EKG (ED ONLY) *Do not use* NOW Care 07/19/24 18:51 Completed Notify provider NEEDED Care 07/20/24 02:06 Completed Occult Blood,Stool (Nursing) NOW Care 07/19/24 18:54 Completed EKG (ED Only) Stat Exams 07/19/24 18:51 Draft US venous doppler LE BI Stat Exams 07/19/24 20:21 Completed XR chest 1V portable Stat Exams 07/19/24 18:51 Completed B-Type Natriuretic Peptide Stat Lab 07/19/24 19:13 Completed CBC Stat Lab 07/19/24 19:13 Completed Comprehensive Metabolic Panel Stat Lab 07/19/24 19:13 Completed Lipase Stat Lab 07/19/24 19:13 Completed Magnesium Stat Lab 07/19/24 19:13 Completed Partial Thromboplastin Time Stat Lab 07/19/24 19:13 Completed Prothrombin Time with INR Stat Lab 07/19/24 19:13 Completed Troponin I Stat Lab 07/19/24 19:13 Completed Code Status Routine Oth 07/20/24 02:06 Completed Vital Signs Vital signs: Vital Signs Temperature 98.3 F 07/19/24 18:41 Pulse Rate 100 07/19/24 18:41 Respiratory Rate 19 07/19/24 18:41 Blood Pressure 124/77 07/19/24 18:41 Pulse Oximetry (%) 98 07/19/24 18:41 Oxygen Delivery Method Room Air 07/19/24 18:41 [facility] Patient data External records reviewed:: [facility] previous records (Reviewed last ED visit dated 07/13/24, discharged with the following: Anemia.) and EMS form Clinical information provided by:: patient and EMS Social determinants that could affect healthcare access:: none Patient has the following chronic illnesses:: Anemia, schizophrenia. How is presenting disease/condition affected by chronic disease/condition?: uneffected by Evaluation data The following diagnostics were reviewed and interpreted by me:: lab results, radiology exam(s) and EKG tracing(s) Lab and/or radiology exams considered but not ordered:: none Interpretation Summary: Procedure(s): XR chest 1V portable Accession Number(s): [id number] cc: Alex Mckoy MD; Ro Eisenberg MD~ Examination: AP chest single view Technique: AP portable upright chest single view Exam date and time: July 19, 2024 1935 hrs. Indications: Chest pain today Findings: The film is rotated RPO Normal heart size Mild elevation left hemidiaphragm No lobar pneumonia or pulmonary edema Impression: No lobar pneumonia or pulmonary edema Dictated By: Alex Mckoy MD Procedure(s): US venous doppler LULU LAZCANO Accession Number(s): [id number] cc: Alex Mckoy MD; Ro Eisenberg MD~ Examination: Venous duplex lower extremity sonogram, bilateral. Date and time of exam: July 19, 2024 2115 hrs. Indications: Bilateral leg swelling and pain beginning 2 weeks ago Technique: Multiple sonographic images of the deep venous system have been obtained. B-mode/2-D grayscale imaging of vascular structures and Doppler spectral analysis (waveforms) and color performed Both legs are examined. Findings: Severe bilateral occlusive deep vein thrombus right and left lower extremities as well as occlusive thrombus superficial venous system Impression: Severe bilateral occlusive deep vein thrombus right and left lower extremities Dictated By: Alex Mckoy MD Medications Medications considered but not ordered:: none Medication administrations:: Medication Administration History Discontinued Medications Acetaminophen (Acetaminophen 325 Mg Tablet) 650 mg PO Q6H PRN PRN Reason: PAIN SCALE 1-3 (mild Stop: 08/19/24 02:09 Clonidine (Clonidine Hcl 0.1 Mg Tablet) 0.2 mg PO QDAY DEV Stop: 08/19/24 08:59 Last Admin: 07/22/24 08:01 Dose: 0.2 mg Documented By: Admin: 07/21/24 08:18 Dose: 0.2 mg Documented By: Admin: 07/20/24 09:11 Dose: 0.2 mg Documented By: PARESH Cyclobenzaprine HCl (Cyclobenzaprine 5 Mg Tablet) 5 mg PO TID PRN PRN Reason: Dystonia. Muscle Rigidity Stop: 08/19/24 05:59 Diphenhydramine HCl (Diphenhydramine 25 Mg Capsule) 25 mg PO BID DEV Stop: 08/19/24 08:59 Last Admin: 07/22/24 08:03 Dose: 25 mg Documented By: Admin: 07/21/24 21:01 Dose: 25 mg Documented By: Admin: 07/21/24 08:17 Dose: 25 mg Documented By: Admin: 07/20/24 20:37 Dose: 25 mg Documented By: Admin: 07/20/24 09:16 Dose: 25 mg Documented By: PARESH Heparin Sodium (Porcine) (Heparin Sod Inj 5000 Unit/Ml Vial) 6,550 unit 80 unit/kg (6550 unit) IV X1 ONE; Protocol Stop: 07/20/24 02:17 Last Admin: 07/20/24 02:37 Dose: 6,550 unit Documented By: YUE Co-signed By: YANN Heparin Sodium (Porcine) (Heparin Sod Inj 5000 Unit/Ml Vial) 3,250 unit 40 unit/kg (3250 unit) IV X1 ONE; Protocol Stop: 07/20/24 02:17 Last Admin: 07/20/24 02:44 Dose: Not Given Documented By: YUE Non-Admin Reason: Discontinued Heparin Sodium (Porcine) (Heparin Sod Inj 5000 Unit/Ml Vial) 6,900 unit 80 unit/kg (6900 unit) IV X1 ONE; Protocol Stop: 07/20/24 11:15 Last Admin: 07/20/24 11:38 Dose: 6,900 unit Documented By: PARESH Co-signed By: TOMMY Comments: Heparin Sodium/Dextrose (Heparin In D5w Ivpb) 25,000 unit in 250 mls @ 14.696 mls/hr IV .Q17H1M DEV; Protocol Stop: 08/03/24 02:29 Last Titration: 07/21/24 11:11 Dose: Infused Documented By: QAMAR Co-signed By: JASE Admin: 07/20/24 19:49 Dose: 20 units/kg/hr, 16.329 mls/hr Documented By: IVANNA Co-signed By: CP Titration: 07/20/24 18:12 Dose: Infused Documented By: IVANNA Co-signed By: RL Titration: 07/20/24 11:40 Dose: 22 units/kg/hr, 17.962 mls/hr Documented By: PARESH Co-signed By: TOMMY Admin: 07/20/24 02:38 Dose: 18 units/kg/hr, 14.696 mls/hr Documented By: YUE Co-signed By: YANN Ondansetron HCl (Ondansetron Inj 2 Mg/Ml Inj 2 Ml) 4 mg IV Q6H PRN; Protocol PRN Reason: NAUSEA OR VOMITING Stop: 08/19/24 02:09 Penicillin G Benzathine (Pen G Joselito (Bicillin La) 2.4 Mmu/4 Ml Syrg) 2.4 mmu IM X1 ONE Stop: 07/20/24 15:46 Last Admin: 07/20/24 16:44 Dose: 2.4 mmu Documented By: PARESH Penicillin G Potassium (Penicillin G Pot Inj 20 Mmu Vial) 2.4 mmu IM X1 ONE Stop: 07/20/24 15:21 Last Admin: 07/20/24 16:20 Dose: 2.4 mmu Documented By: PARESH Comments: label did not scan, threw in sharps Rivaroxaban (Rivaroxaban 10 Mg Tablet) 20 mg PO WBR [facility] Stop: 08/12/24 07:59 Last Admin: 07/22/24 08:03 Dose: 20 mg Documented By: ANA Rivaroxaban 10 mg/ Rivaroxaban (5 mg) 15 mg PO BIDWM [facility] Stop: 07/22/24 00:00 Last Admin: 07/21/24 17:24 Dose: 15 mg Documented By: Admin: 07/21/24 11:11 Dose: 15 mg Documented By: QAMAR Sennosides (Senna Tablet) 1 tab PO QDAY PRN; Protocol PRN Reason: constipation Stop: 08/19/24 02:09 see above if any Consultations Consultation(s) initiated? (list below): Yes Consultation #1 (Physician, Specialty, Details): Hospitalist made aware of the patient?s HPI, PMHx, lab and/or radiology results. Treatment plan was discussed. Will admit for further evaluation and management. Accepts patient for admission. Time: 00:09 Diagnosis Differential Diagnosis ED Complaint MDM: DVT, PE, cellulitis Most likely diagnosis given after review of the tests above:: See clinical impression below Admission Indicated Admission indicated?: indicated Explain why admission is indicated or not indicated:: Patient has abnormalities in their studies and needs admission, see above. Admission Request Was there a request for admission?: Yes Admission Attestation Admission request attestation: Discussed case with [] from Hospitalist service regarding admission. Discussed patients ED course, exam findings, labs, and radiology results. The Hospitalist [agrees,declines] to accept the patient for admission. Disposition Plan Disposition Plan: Admit Medical Decision Making Differential Diagnosis Differential Diagnosis: DVT, PE, cellulitis Lab Data 07/22/24 04:26 07/22/24 04:26 Labs: Lab Results 07/19/24 Range/Units 19:13 WBC 11.4 H (3.8-10.6) Thou/mm3 RBC 3.17 L (4.50-5.90) Miln/mm3 Hgb 8.5 L (13.5-16.0) g/dL Hct 27.1 L (41.0-53.0) % MCV 86 (80-100) fL MCH 26.8 (25.0-35.0) pg MCHC 31.4 (31.0-37.0) g/dl RDW Std Deviation 43.1 (35.1-43.9) fL Plt Count 534 H D (140-440) Thou/mm3 Neut % (Auto) 73 (37-80) % Lymph % (Auto) 14 (10-50) % [place] % (Auto) 8 (0-12) % Eos % (Auto) 2 (0-10) % Baso % (Auto) 0 (0-2.5) % Neut # (Auto) 8.3 H (1.8-7.7) Thou/mm3 Lymph # (Auto) 1.6 (1.0-4.8) Thou/mm3 [place] # (Auto) 1.0 H (0.0-0.8) Thou/mm3 Eos # (Auto) 0.3 (0.0-0.5) Thou/mm3 Baso # (Auto) 0.0 (0.0-0.2) Thou/mm3 Immature Gran # (Auto) 0.23 H (0.00-0.00) Thou/mm3 Absolute Nucleated RBC 0.00 (0.00-0.00) Thou/mm3 Immature Gran % 2 H (0-0) % Nucleated RBC % 0 (0) /100 WBC PT 12.3 H (9.0-12.2) Seconds INR 1.1 (0.9-1.3) APTT 29.4 (22.0-36.0) Seconds Sodium 140 (136-145) mMol/L Potassium 4.0 (3.4-5.1) mMol/L Chloride 102 (98-107) mMol/L Carbon Dioxide 30.6 (20.0-31.0) mMol/L Anion Gap 7 (7-16) BUN 9 (9-23) mg/dL Creatinine 0.6 (0.6-1.3) mg/dL Estim Creat Clear Calc 206.0 (>60) mL/min eGFR > 60 (60 - ) See Note BUN/Creatinine Ratio 15 (12-20) Ratio Glucose 93 (74-106) mg/dL Calculated Osmolality 278 (275-295) Calcium 8.9 (8.3-10.6) mg/dL Corrected Calcium 9.0 (8.5-10.1) mg/dL Magnesium 2.3 (1.6-2.6) mg/dL Total Bilirubin 0.4 (0.3-1.2) mg/dL AST 41 H (0-34) U/L ALT 41 (10-49) U/L Alkaline Phosphatase 77 (46-116) U/L Troponin I < 0.002 (0.0-0.045) ng/mL B-Natriuretic Peptide 37 (0-100) pg/mL Total Protein 7.1 (5.7-8.2) gm/dL Albumin 3.9 (3.5-5.0) gm/dL Globulin 3.2 (2.3-3.5) gm/dL Albumin/Globulin Ratio 1.2 (1.2-2.2) Lipase 49 (12-53) U/L Critical Care Time Critical Care Time Critical Care Time: Yes Total Critical Care Time (min.): 35 Attestation: The high probability of sudden, clinically significant deterioration in the patient's condition required the highest level of my preparedness to intervene urgently. The services I provided to this patient were to treat and/or prevent clinically significant deterioration. Services included the following: chart data review, reviewing nursing notes and/or old charts, documentation time, cosmetic consultant collaboration regarding findings and treatment options, medication orders and management, direct patient care, vital sign assessments and ordering, interpreting and reviewing diagnostic studies and lab tests. Aggregate critical care time includes only time during which I was engaged in work directly related to the patient's care, as described above, whether at bedside or elsewhere in the Emergency Department. It did not include time spent performing other reported procedures or the services of residents, students, nurses or physician assistants. Discharge Plan Plan Patient Disposition: Admit Acute Care w/in Hospital Patient condition on transfer: Stable Problem List Clinical Impression: Deep vein thrombosis (DVT) of both lower extremities Patient/Caregiver Discharge Instructions Discharge Activity: as per physical therapy
--- NOTE | 2024-07-19 20:21 | XR_ITS ---
Examination: Venous duplex lower extremity sonogram, bilateral. Date and time of exam: July 19, 2024 2115 hrs. Indications: Bilateral leg swelling and pain beginning 2 weeks ago Technique: Multiple sonographic images of the deep venous system have been obtained. B-mode/2-D grayscale imaging of vascular structures and Doppler spectral analysis (waveforms) and color performed Both legs are examined. Findings: Severe bilateral occlusive deep vein thrombus right and left lower extremities as well as occlusive thrombus superficial venous system Impression: Severe bilateral occlusive deep vein thrombus right and left lower extremities
[2024-07-19 20:48] VITALS: BP 108/65; PULSE 122; RESP 20; TEMP 37; O2SAT 100
[2024-07-19 22:29] VITALS: BP 110/65; PULSE 117; RESP 19; TEMP 36.6; O2SAT 98
[2024-07-20] VITALS (10 sets, daily range): BP systolic 98–125; BP diastolic 65–82; PULSE 84–118; RESP 10–20; TEMP 36.6–36.8; O2SAT 95–98; BMI 23.6; BMI 23.7
--- NOTE | 2024-07-20 02:16 | PD.RESHP ---
Documentation for date of: 07/20/24 HPI History of Present Illness Chief complaint: B/L Leg Pain History of present illness: 29-year-old male with past medical history anemia of chronic disease, dystonia, schizophrenia, history of syphilis infection and psychiatric incarceration at [facility] presents to the ED on 07/19 with bilateral lower extremity pain. Patient was recently incarcerated in [facility]; however, was transferred over to [facility] about 3 months ago and has been there since. Patient states that he developed bilateral lower extremity pain recently but cannot tell exactly when. Patient is usually able to ambulate and has not been bedbound for long periods of time. Patient states that the pain feels like a squeezing like sensation near his joints but only limited to the lower extremities and does not involve the upper extremities (wrist, shoulders). Patient denies having other concerning symptoms such as fever/chills, chest pain, shortness of breath, nausea, vomiting, diarrhea, dysuria, increased urinary frequency, melena, hematochezia or hematemesis. Patient receives once a month injection of paliperidone 117 mg which she states was started at [facility] and denies having any medical conditions requiring admission. Near bedside, our [facility] staff member and a deputy(correctional officer chief?). Of note, patient presented on 07/13 and 07/16 with lower extremity pain; however, was not admitted and there was a CTA of the chest completed which did not show pulmonary embolism. Medical history: As stated above Surgical history: Denies having any surgeries in the past Allergies: NKDA Medications: Clonidine 0.2 mg p.o. daily, paliperidone Q4 170 mg IM (last dose 07/15), diphenhydramine 25 mg p.o. twice daily for dystonia and cyclobenzaprine 10 mg p.o. 3 times daily as needed for dystonia as well. Family history: Noncontributory Social history: Patient was born and raised in [place], has family in [place], incarcerated in [facility] (unsure why did not ask) and currently at [facility], patient denies tobacco use, alcohol use or any illicit drug use. ROS: All 12 systems assessed and the patient denies unless otherwise stated in HPI. In the ED, patient presented with normal vitals. Pertinent lab findings included WBC of 11.4, hemoglobin 8.5 (MCV 86), platelet 534, CMP within normal limits. Chest x-ray was negative for any acute process, EKG showed sinus tachycardia with short WV interval; however, venous Doppler study showed severe bilateral occlusive deep vein thrombosis in the right and left lower extremities. Patient will be admitted for hypercoagulable workup along with heparin drip for the bilateral DVT; cardiology has been consulted appreciate recommendations. Exam Vital Signs Temp Pulse Resp BP Pulse Ox O2 Del Method 98 F 103 H 13 125/79 97 Room Air 07/20/24 00:52 07/20/24 00:52 07/20/24 00:52 07/20/24 00:52 07/20/24 00:52 07/20/24 00:52 Narrative Exam Physical Exam: GENERAL: Awake, answering questions appropriately, labile mood HEENT: NC/AT. Moist mucosa. PERRLA/EOMI. CARDIO: Heart RRR, no obvious murmurs, no JVD. PULM: No coughing or visible SOB. Lungs CTA B/L. GI: Abdomen soft, NT/ND, +BS. SKIN/MSK/EXT: B/L extremities flexed at the knees, patient denies tenderness at knee joint line, cannot fully extend legs secondary to pain, no erythema/edema noted NEURO: Oriented x3, no focal neurological deficits, sensations intact, patient moves extremities x4. Results: Labs 07/20/24 10:02 07/20/24 10:02 Labs: Short CBC 07/19/24 Range/Units 19:13 WBC 11.4 H (3.8-10.6) Thou/mm3 Hgb 8.5 L (13.5-16.0) g/dL Hct 27.1 L (41.0-53.0) % Plt Count 534 H D (140-440) Thou/mm3 BMP 07/19/24 19:13 Sodium 140 Potassium 4.0 Chloride 102 Carbon Dioxide 30.6 BUN 9 Creatinine 0.6 Glucose 93 Calcium 8.9 Cardiac Enzymes 07/19/24 Range/Units 19:13 Troponin I < 0.002 (0.0-0.045) ng/mL Liver Function 07/19/24 Range/Units 19:13 Total Bilirubin 0.4 (0.3-1.2) mg/dL AST 41 H (0-34) U/L ALT 41 (10-49) U/L Alkaline Phosphatase 77 (46-116) U/L Albumin 3.9 (3.5-5.0) gm/dL Quality Measures Quality Measures none Medications Home Medications and Allergies Home Medications ?Medication ?Instructions ?Recorded ?Confirmed ?Type acetaminophen 650 mg tablet 650 mg PO Q6H PRN Fever Or Pain 07/20/24 07/20/24 History clonidine HCl 0.1 mg-0.2 mg 0.2 mg PO DAILY 07/20/24 07/20/24 History tablet,extended release dose pack cyclobenzaprine 10 mg tablet 10 mg PO Q8HR PRN leg cramps 07/20/24 07/20/24 History diphenhydramine HCl 25 mg capsule 25 mg PO BID 07/20/24 07/20/24 History docusate sodium 100 mg capsule 200 mg PO BID 07/20/24 07/20/24 History lactulose 10 gram/15 mL oral syrup 10 g PO BID 07/20/24 07/20/24 History paliperidone palmitate 117 mg/0.75 117 mg QMONTH 07/20/24 07/20/24 History mL intramuscular syringe polyethylene glycol 3350 17 gram 17 g PO BID 07/20/24 07/20/24 History oral powder packet (Miralax) Allergies Allergy/AdvReac Type Severity Reaction Status Date / Time No Known Allergies Allergy Verified 07/10/24 10:48 Visit Medications Acetaminophen (Acetaminophen 325 Mg Tablet) 650 mg PO Q6H PRN PRN Reason: PAIN SCALE 1-3 (mild Stop: 08/19/24 02:09 Ondansetron HCl (Ondansetron Inj 2 Mg/Ml Inj 2 Ml) 4 mg IV Q6H PRN; Protocol PRN Reason: NAUSEA OR VOMITING Stop: 08/19/24 02:09 Sennosides (Senna Tablet) 1 tab PO QDAY PRN; Protocol PRN Reason: constipation Stop: 08/19/24 02:09 Assessment & Plan Plan 29-year-old male with past medical history anemia of chronic disease, dystonia, schizophrenia, history of syphilis infection and psychiatric incarceration at [facility] presents with bilateral lower extremity pain will be admitted for hypercoagulable workup along with heparin drip for the bilateral DVT; cardiology has been consulted appreciate recommendations. #Unprovoked DVT #Bilateral Lower Extremities DVT #Thrombocytosis Patient has been having bilateral lower extremity for at least the past 1 week; describes it as aching/squeezing sensation at the joints of the lower extremities Patient has not been bedbound; is able to ambulate without issue Patient denies having any surgeries recently or at any time Patient apparently presented on 07/10 with bilateral lower extremity pain, D-dimer was elevated at that time as; CTA of chest showed no PE, no venous Doppler ultrasound was done at that time Patient was discharged with bilateral lower extremity pain believed to be secondary to musculoskeletal versus neurologic/EPS like presentation Patient then presented on 07/13 with, constipation at that time D-dimer was also elevated. Patient presents on 07/19 with bilateral lower extremity pain Venous Doppler US showed severe bilateral occlusive deep vein thrombus right and left lower extremities Plan: Hypercoagulable studies, extensive workup was ordered; however, patient was started on heparin drip prior to labs being drawn Hepatitis, HIV, rheumatoid factor, CRP, ESR Consider canceling protein C/S, factor V Leyden, homocystine, antiphospholipid labs Patient on heparin drip Cardiology consulted (Dr. Manuel), appreciate recommendations #Anemia of Chronic Disease Iron studies from the past show very low iron; however, elevated ferritin Plan: Refer to outpatient hematology for workup #Mild Leukocytosis Likely secondary to acutely ill status Chest x-ray does not show any acute process Patient denies having any fever/chills, dysuria or any new skin changes/rashes Plan: Monitor with morning labs #Schizophrenia Patient apparently has history of schizophrenia; on paliperidone IM 170 mg every 4 weeks (last dose 07/15) Patient also takes clonidine 0.2 mg p.o. daily Plan: Will continue clonidine as above #Dystonia Patient on home diphenhydramine 25 mg p.o. twice daily and cyclobenzaprine 10 mg 3 times daily as needed Plan: Restarted the above home medications Hospital Management: Lines: PIV Bowel: Senna as needed Diet: Regular GI prophylaxis: Not needed DVT prophylaxis: Heparin drip covered Dispo: Telemetry, on heparin drip for bilateral DVT Code: Full Patient seen and examined with attending Dr. Decker and senior resident Dr. Rolando Singh, PGY-1 Attending Provider Attestation/Addendum 29-year-old male patient from [facility] was seen in the ER with bilateral lower extremity weakness for several days. Patient was diagnosed with acute DVT both lower extremities. Shortness of breath no chest pain. Blood pressure is stable patient has low hemoglobin. The patient was started on heparin drip. Patient was seen and evaluated in ER bed #10.
[2024-07-20] MEDS: HEPARIN SOD INJ 5000 UNIT/ML VIAL 6550 UNIT IV (02:37)
[2024-07-20] MEDS: Heparin/D5w 25K 250 ML Ivpb 25,000 UNIT/250 ML BAG 14.696 UNIT IV (02:38)
[2024-07-20] MEDS: cloNIDine HCL 0.1 MG TABLET 0.2 MG PO (09:11)
[2024-07-20] MEDS: DiphenhydrAMINE 25 MG CAPSULE PO ×2 (09:16→20:37)
[2024-07-20 10:22] LABS: Basophils % (Auto) 0 % (0-2.5); Eosinophils # (Auto) 0.3 Thou/mm3 (0.0-0.5); Eosinophils % (Auto) 2 % (0-10); Hematocrit 29.1 % (41.0-53.0); Immature Granulocytes % (Auto) 2 % (0-0); Immature Granulocytes Auto 0.25 Thou/mm3 (0.00-0.00); Lymphocytes # (Auto) 1.3 Thou/mm3 (1.0-4.8); Lymphocytes % (Auto) 11 % (10-50); Mean Corpuscular HGB Conc 30.9 g/dl (31.0-37.0); Mean Corpuscular Hemoglobin 26.5 pg (25.0-35.0); Mean Corpuscular Volume 86 fL (80-100); Monocytes # (Auto) 0.8 Thou/mm3 (0.0-0.8); Monocytes % (Auto) 7 % (0-12); Neutrophils # (Auto) 9.6 Thou/mm3 (1.8-7.7); Neutrophils % (Auto) 79 % (37-80); Nucleated Red Blood Cell % 0 /100 WBC (0); Platelet Count 594 Thou/mm3 (140-440); RDW Standard Deviation 43.6 fL (35.1-43.9); White Blood Count 12.3 Thou/mm3 (3.8-10.6)
[2024-07-20 10:42] LABS: Alanine Aminotransferase 47 U/L (10-49); Albumin, Serum 4.2 gm/dL (3.5-5.0); Albumin/Globulin Ratio 1.1 (1.2-2.2); Alkaline Phosphatase 91 U/L (46-116); Anion Gap 8 (7-16); Aspartate Amino Transferase 24 U/L (0-34); BUN/Creatinine Ratio 17 Ratio (12-20); Bilirubin,Total 0.4 mg/dL (0.3-1.2); Blood Urea Nitrogen 10 mg/dL (9-23); C-Reactive Protein 16.1 mg/dL (0.0-0.9); Carbon Dioxide 30.5 mMol/L (20.0-31.0); Cardiac Risk Estimate 4.3 RATIO (4.0-6.7); Chloride 99 mMol/L (98-107); Cholesterol 90 mg/dL (132-200); Creatinine (Component) 0.6 mg/dL (0.6-1.3); Estimated Creatinine Clearance 213.2 mL/min (>60); Globulin 3.7 gm/dL (2.3-3.5); Glucose 102 mg/dL (74-106); HDL Cholesterol 21 mg/dL (40-60); LDL Cholesterol,Calculated 58 mg/dL (0-130); Magnesium 2.1 mg/dL (1.6-2.6); Osmolality,Calculated 272 (275-295); Potassium 3.7 mMol/L (3.4-5.1); Sodium 137 mMol/L (136-145); Thyroid Stimulating Hormone 3.46 uIU/mL (0.55-4.78); Total Protein 7.9 gm/dL (5.7-8.2); Triglycerides 54 mg/dL (30-150); eGFR > 60 See Note
--- NOTE | 2024-07-20 10:51 | PC.SS ---
Patient admitted from [facility]. Patient admitted for DVT. Chart documentaton shows that patient's aunt, Janice Falk, makes all medical decisions and signs consents. Patient is connected to [facility], #[phone], Unruly Lee. Patient has hx: Schizophrenia. D/c plan will be to return to [facility]. Staff to transport.
[2024-07-20 10:54] LABS: Partial Thromboplastin Time 29.7 Seconds (22.0-36.0)
[2024-07-20] MEDS: HEPARIN SOD INJ 5000 UNIT/ML VIAL 6900 UNIT IV (11:38)
[2024-07-20 11:54] LABS: Hepatitis A Antibody IgM Non Reactive (Non React); Hepatitis B Core Antibody IgM Non Reactive (Non React); Hepatitis B Surface Antigen Non Reactive (Non React); Hepatitis C Antibody Non Reactive (Non React)
[2024-07-20 12:11] LABS: Sed Rate (ESR) 70 mm/hr (0-15)
[2024-07-20 12:29] LABS: HIV (1&2) Antibody Rapid Non-Reactive
--- NOTE | 2024-07-20 15:06 | ESPR_ITS ---
<Statement entered by Lluvia Power MD - 07/21/24 18:22> Patient was seen and examined by me personally. I agree with most of the assessment and plan as discussed with the internetworking technician physician, and my attending, Dr. Roach. Patient remains on heparin drip. Anticipate DC in 24-48 hours back to [facility]. Will need to be transitioned to oral AC. Additionally noted positive syphilis testing so patient received penicillin dose 2.4MMU IM. He can finish treatment course once back at [facility]. Lluvia Power MD, PGY-3 Documentation for date of: 07/20/24 Subjective Subjective Interval history: Patient was seen and examined by the bedside. No acute overnight events. Reported that he is having mild soreness on the legs but denies any pain. Physical examination remains unremarkable except for tachycardia. Vitals are stable. Continued to be on heparin drip Exam Vital Signs Temp Pulse Resp BP Pulse Ox O2 Del Method 98.3 F 110 H 13 111/72 96 Room Air 07/20/24 12:00 07/20/24 12:00 07/20/24 12:00 07/20/24 12:00 07/20/24 12:00 07/20/24 12:00 Narrative Exam General: Awake and in no acute distress. HEENT: Normocephalic, atraumatic, mucous membranes moist. Heart: Regular rate and rhythm, no murmurs. Lungs: Clear to auscultation with no wheezing or crackles. Abdomen: Soft, nondistended, nontender, positive bowel sounds. ?No guarding or rebound tenderness. Neurologic: Alert and oriented x3, no gross neurological deficit, and patient able to move all 4 extremities. Extremities: No edema. Skin: No rash or ecchymoses. Objective Labs 07/22/24 04:26 07/22/24 04:26 Labs: Laboratory Results - last 24 hr 07/19/24 07/20/24 19:13 10:02 WBC 11.4 H 12.3 H RBC 3.17 L 3.40 L Hgb 8.5 L 9.0 L Hct 27.1 L 29.1 L MCV 86 86 MCH 26.8 26.5 MCHC 31.4 30.9 L RDW Std Deviation 43.1 43.6 Plt Count 534 H D 594 H D Neut % (Auto) 73 79 Lymph % (Auto) 14 11 [place] % (Auto) 8 7 Eos % (Auto) 2 2 Baso % (Auto) 0 0 Neut # (Auto) 8.3 H 9.6 H Lymph # (Auto) 1.6 1.3 [place] # (Auto) 1.0 H 0.8 Eos # (Auto) 0.3 0.3 Baso # (Auto) 0.0 0.0 Immature Gran # (Auto) 0.23 H 0.25 H Absolute Nucleated RBC 0.00 0.00 Immature Gran % 2 H 2 H Nucleated RBC % 0 0 ESR 70 H PT 12.3 H INR 1.1 APTT 29.4 29.7 Sodium 140 137 Potassium 4.0 3.7 Chloride 102 99 Carbon Dioxide 30.6 30.5 Anion Gap 7 8 BUN 9 10 Creatinine 0.6 0.6 Estim Creat Clear Calc 206.0 213.2 eGFR > 60 > 60 BUN/Creatinine Ratio 15 17 Glucose 93 102 Calculated Osmolality 278 272 L Calcium 8.9 9.0 Corrected Calcium 9.0 9.0 Phosphorus 4.0 Magnesium 2.3 2.1 Total Bilirubin 0.4 0.4 AST 41 H 24 ALT 41 47 Alkaline Phosphatase 77 91 Troponin I < 0.002 C-Reactive Prot, Quant 16.1 H B-Natriuretic Peptide 37 Total Protein 7.1 7.9 Albumin 3.9 4.2 Globulin 3.2 3.7 H Albumin/Globulin Ratio 1.2 1.1 L Triglycerides 54 Cholesterol 90 L LDL Cholesterol, Calc 58 HDL Cholesterol 21 L Cholesterol/HDL Ratio 4.3 Lipase 49 TSH 3.46 Hepatitis A IgM Ab Non Reactive Hep Bs Antigen Non Reactive Hep B Core IgM Ab Non Reactive Hepatitis C Antibody Non Reactive HIV 1&2 Antibody Rapid Non-Reactive Quality Measures Quality Measures none Assessment & Plan Assessment Current Active Medications: Generic Name Dose Route Start Last Admin Trade Name Freq PRN Reason Stop Dose Admin Acetaminophen 650 mg 07/20/24 02:10 Acetaminophen 325 Mg Tablet PO 08/19/24 02:09 Q6H PRN PAIN SCALE 1-3 (mild Clonidine 0.2 mg 07/20/24 09:00 07/20/24 09:11 Clonidine Hcl 0.1 Mg Tablet PO 08/19/24 08:59 0.2 mg QDAY DEV Administration Cyclobenzaprine HCl 5 mg 07/20/24 02:20 Cyclobenzaprine 5 Mg Tablet PO 08/19/24 05:59 TID PRN Dystonia. Muscle Rigidity Diphenhydramine HCl 25 mg 07/20/24 09:00 07/20/24 09:16 Diphenhydramine 25 Mg Capsule PO 08/19/24 08:59 25 mg BID DEV Administration Heparin Sodium/Dextrose 25,000 unit in 250 mls @ 14.696 mls/hr 07/20/24 02:30 07/20/24 11:40 Heparin In D5w Ivpb IV 08/03/24 02:29 22 units/kg/hr .Q17H1M DEV 17.962 mls/hr Titration Protocol 18 UNITS/KG/HR Ondansetron HCl 4 mg 07/20/24 02:10 Ondansetron Inj 2 Mg/Ml Inj 2 Ml IV 08/19/24 02:09 Q6H PRN NAUSEA OR VOMITING Protocol Sennosides 1 tab 07/20/24 02:10 Senna Tablet PO 08/19/24 02:09 QDAY PRN constipation Protocol Plan 29-year-old male with past medical history anemia of chronic disease, dystonia, schizophrenia, history of syphilis infection and psychiatric incarceration at [facility] presents with bilateral lower extremity pain will be admitted for hypercoagulable workup along with heparin drip for the bilateral DVT; cardiology has been consulted appreciate recommendations. #Unprovoked DVT #Bilateral Lower Extremities DVT #Thrombocytosis, likely reactive Patient has been having bilateral lower extremity for at least the past 1 week; describes it as aching/squeezing sensation at the joints of the lower extremities Patient has not been bedbound; is able to ambulate without issue Patient denies having any surgeries recently or at any time Patient apparently presented on 07/10 with bilateral lower extremity pain, D- dimer was elevated at that time as; CTA of chest showed no PE, no venous Doppler ultrasound was done at that time Patient was discharged with bilateral lower extremity pain believed to be secondary to musculoskeletal versus neurologic/EPS like presentation Patient then presented on 07/13 with, constipation at that time D-dimer was also elevated. Patient presents on 07/19 with bilateral lower extremity pain Venous Doppler US showed severe bilateral occlusive deep vein thrombus right and left lower extremities ESR and CRP are elevated -acute DVT versus underlying autoimmune. Hepatitis, HIV, rheumatoid factor came back. Plan: Hypercoagulable studies, extensive workup was ordered; however, patient was started on heparin drip. Patient on heparin drip Cardiology consulted (Dr. Manuel), appreciate recommendations #Anemia of Chronic Disease Iron studies from the past show very low iron; however, elevated ferritin Plan: Recommended to follow-up in outpatient setting for further workup #Mild Leukocytosis Likely secondary to acutely ill status Chest x-ray does not show any acute process Patient denies having any fever/chills, dysuria or any new skin changes/rashes Will continue to monitor CBC #?Syphilis Patient tested positive on initial test outpatient, confirmatory pending Will give penicillin G 2.4MMU IM x1; can get 2 more doses over next 2 weeks to complete treatment #Schizophrenia Patient apparently has history of schizophrenia; on paliperidone IM 170 mg every 4 weeks (last dose 07/15) Patient also takes clonidine 0.2 mg p.o. daily Plan: Will continue clonidine as above #Dystonia Patient on home diphenhydramine 25 mg p.o. twice daily and cyclobenzaprine 10 mg 3 times daily as needed Plan: Restarted the above home medications Hospital Management: Lines: PIV Bowel: Senna as needed Diet: Regular GI prophylaxis: Not needed DVT prophylaxis: Heparin drip covered Dispo: Telemetry, on heparin drip for bilateral DVT Code: Full Patient plan of care was discussed with the attending physician, Dr. Roach and senior resident Dr. Jannet Lund, PGY1 Attending Provider Attestation/Addendum I, Karrie Roach, , attest that I was physically present for the miguel portions of the service and evaluated the patient with the resident and I reviewed and discussed the case with the resident and agree with the resident's findings and plans of care as documented above Patient seen and evaluated this AM. He states he is doing well. He states he has been unable to walk due to pain. Will have PT walk with patient. He remainso n heparin drip. Will need home med rec as patient has chronic anemia to evaluate for any agents that may be causing bone marrow suppression. Anticipate DC within next 24hrs
[2024-07-20] MEDS: [UNRECOGNIZED DRUG - OTHER] 2.4 MMU IM (16:20)
[2024-07-20] MEDS: PEN G BENZ (Bicillin LA) 2.4 MMU/4 ML SYRG IM (16:44)
[2024-07-20 18:42] LABS: RA Screen Negative (Negative)
[2024-07-20 19:27] LABS: Partial Thromboplastin Time 76.3 Seconds (22.0-36.0)
[2024-07-20] MEDS: Heparin/D5w 25K 250 ML Ivpb 25,000 UNIT/250 ML BAG 16.329 UNIT IV (19:49)
--- NOTE | 2024-07-20 20:30 | PC.NURSE ---
IV pump was found at 20.78 units/kg, PTT result was 76.3. Followed heparin protocol based on PTT results (keep current rate). Verified iv pump rate and heparin dose with nurse Levi.
[2024-07-21] VITALS (8 sets, daily range): BP systolic 96–124; BP diastolic 59–83; PULSE 73–119; RESP 16–18; TEMP 36.1–37.4; O2SAT 97–99
[2024-07-21 03:11] LABS: Partial Thromboplastin Time 61.3 Seconds (22.0-36.0)
[2024-07-21 03:29] LABS: Basophils % (Auto) 0 % (0-2.5); Eosinophils # (Auto) 0.3 Thou/mm3 (0.0-0.5); Eosinophils % (Auto) 2 % (0-10); Hematocrit 26.8 % (41.0-53.0); Immature Granulocytes % (Auto) 2 % (0-0); Immature Granulocytes Auto 0.26 Thou/mm3 (0.00-0.00); Immature Reticulocyte Fraction 28.5 % (2.3-13.4); Lymphocytes # (Auto) 1.8 Thou/mm3 (1.0-4.8); Lymphocytes % (Auto) 15 % (10-50); Mean Corpuscular HGB Conc 32.1 g/dl (31.0-37.0); Mean Corpuscular Volume 84 fL (80-100); Monocytes # (Auto) 1.1 Thou/mm3 (0.0-0.8); Monocytes % (Auto) 9 % (0-12); Neutrophils # (Auto) 8.8 Thou/mm3 (1.8-7.7); Neutrophils % (Auto) 72 % (37-80); Nucleated Red Blood Cell % 0 /100 WBC (0); Platelet Count 579 Thou/mm3 (140-440); RDW Standard Deviation 43.2 fL (35.1-43.9); Red Blood Count 3.18 Miln/mm3 (4.50-5.90); Reticulocyte % (Auto) 2.4 % (0.5-1.5); Reticulocyte Absolute Auto 76.3 Biln/L (25.0-75.0); Reticulocyte Hgb Content 25.7 pg (28.0-35.0); White Blood Count 12.3 Thou/mm3 (3.8-10.6)
[2024-07-21 03:37] LABS: Hemoglobin 8.6 g/dL (13.5-16.0)
[2024-07-21 03:44] LABS: Total Iron Binding Capacity 194 mcg/dL (250-425)
[2024-07-21 03:46] LABS: INR 1.1 (0.9-1.3); Prothrombin Time 12.4 Seconds (9.0-12.2)
[2024-07-21 03:54] LABS: Iron 34 mcg/dL (65-175); Percent Iron Saturation 17 % (20-55); Unsaturated Iron Binding 160 (225-295)
[2024-07-21 04:30] LABS: Alanine Aminotransferase 50 U/L (10-49); Albumin, Serum 3.7 gm/dL (3.5-5.0); Albumin/Globulin Ratio 1.2 (1.2-2.2); Alkaline Phosphatase 89 U/L (46-116); Anion Gap 8 (7-16); Aspartate Amino Transferase 43 U/L (0-34); BUN/Creatinine Ratio 18 Ratio (12-20); Bilirubin,Total 0.3 mg/dL (0.3-1.2); Blood Urea Nitrogen 9 mg/dL (9-23); Calcium 8.8 mg/dL (8.3-10.6); Carbon Dioxide 29.1 mMol/L (20.0-31.0); Chloride 101 mMol/L (98-107); Creatinine (Component) 0.5 mg/dL (0.6-1.3); Estimated Creatinine Clearance 255.8 mL/min (>60); Globulin 3.1 gm/dL (2.3-3.5); Glucose 99 mg/dL (74-106); Osmolality,Calculated 274 (275-295); Potassium 4.2 mMol/L (3.4-5.1); Sodium 138 mMol/L (136-145); Total Protein 6.8 gm/dL (5.7-8.2); eGFR > 60 See Note
[2024-07-21] MEDS: DiphenhydrAMINE 25 MG CAPSULE PO ×2 (08:17→21:01)
[2024-07-21] MEDS: cloNIDine HCL 0.1 MG TABLET 0.2 MG PO (08:18)
[2024-07-21] MEDS: RIVAROXABAN 10 MG, RIVAROXABAN 5 MG 15 MG PO ×2 (11:11→17:24)
--- NOTE | 2024-07-21 11:18 | PC.NURSE ---
received call from [facility] rosa, gave update, pontential discharge today per md rounds. rosa requested to call her with discharge instructions once orders are placed
--- NOTE | 2024-07-21 15:27 | PC.SS ---
rounding note: Patient to d/c back to [facility] today. Orders are in. [facility] to transport.
--- NOTE | 2024-07-21 16:51 | PC.NURSE ---
from [facility] called to discuss discharge, not agreeable to discharge plan, gave dr. pompa phone number to contact md to discuss discharge
--- NOTE | 2024-07-21 16:53 | XR_ITS ---
Examination: CT abdomen with intravenous contrast CT pelvis with intravenous contrast 2-D coronal reconstructions 2-D sagittal reconstructions Date and time of exam:July 21, 2024 at 2015 hrs. Indications: Extensive bilateral occlusive deep vein thrombus in the lower extremities, clinical diagnosis malignancy. CTDI: vol (mGy) 6.75 DLP: (mGycm) 466 Technique: Multiple axial sections of the abdomen and pelvis have been obtained. 64 slice high-resolution scanner used. 3 mm axial sections have been obtained, post intravenous injection 60 cc [id number] 2-D sagittal, coronal reconstructions obtained. Low dose protocols were performed. One or more of the following dose reduction techniques were used; automated exposure control, adjustment of the mA and/or KV according to patient size, use of iterative reconstruction technique. Findings: No focal liver or splenic lesions Patient motion degrades gallbladder pancreas image quality No renal or ureteral calculi Aorta normal size Multiple subcentimeter periaortic lymph nodes No bowel obstruction Normal appendix No diverticulitis The pelvic veins are dilated suspicious for thrombus Urinary bladder intact The osseous structures are intact Impression: Subcentimeter periaortic lymph nodes, consider PET CT scan follow-up to assess for hypermetabolic lymphadenopathy Dilated pelvic venous structures, recommend ultrasound abdomen pelvis follow-up to assess for thrombus in the inferior vena cava and pelvic veins
--- NOTE | 2024-07-21 17:07 | PC.NURSE ---
discharge cancelled by , charge nurse cammie made aware
--- NOTE | 2024-07-21 17:21 | ESPR_ITS ---
<Statement entered by Lluvia Power MD - 07/21/24 18:29> Patient was seen and examined by me personally. I agree with most of the assessment and plan as discussed with the market research intern physician, and my attending, Dr. Maya. Patient was transitioned to xarelto (15mg BID x 21 days, 20mg qDay for 69 days). Treat for 3 months, and recommend to repeat hypercoaguable work up with hematology outpatient. Case was discussed with Pilates Instructor Dr. Juan at [facility], who agreed however was concerned about possible underlying malignancy, therefore will obtain CT abd/pelvis and rule out intraabdominal mass. Patient otherwise is stable; tolerating diet; and had a bowel movement earlier in the shift. Lluvia Power MD, PGY-3 Documentation for date of: 07/21/24 Subjective Subjective Interval history: Patient was seen and examined by the bedside. No acute overnight events. Denies any other complaints. Vitals are stable and physical examination remains unremarkable except for mild tachycardia with heart rate around 110 Labs done today showed WBC 12.3, hemoglobin 8.6, platelets 579, reticulocyte count 2.4%, CMP is within normal limits Heparin drip was stopped and patient was started on rivaroxaban Exam Vital Signs Temp Pulse Resp BP Pulse Ox O2 Del Method 98.3 F 105 H 16 114/66 99 Room Air 07/21/24 16:25 07/21/24 16:25 07/21/24 16:25 07/21/24 16:25 07/21/24 16:25 07/21/24 16:25 Narrative Exam General: Awake and in no acute distress. HEENT: Normocephalic, atraumatic, mucous membranes moist. Heart: Regular rate and rhythm, no murmurs. Lungs: Clear to auscultation with no wheezing or crackles. Abdomen: Soft, nondistended, nontender, positive bowel sounds. ?No guarding or rebound tenderness. Neurologic: Alert and oriented x3, no gross neurological deficit, and patient able to move all 4 extremities. Extremities: No edema. Skin: No rash or ecchymoses. Objective Labs 07/22/24 04:26 07/22/24 04:26 Labs: Laboratory Results - last 24 hr 07/20/24 07/20/24 07/21/24 10:02 18:43 01:45 WBC 12.3 H RBC 3.18 L Hgb 8.6 L Hct 26.8 L MCV 84 MCH 27.0 MCHC 32.1 RDW Std Deviation 43.2 Plt Count 579 H Neut % (Auto) 72 Lymph % (Auto) 15 [place] % (Auto) 9 Eos % (Auto) 2 Baso % (Auto) 0 Neut # (Auto) 8.8 H Lymph # (Auto) 1.8 [place] # (Auto) 1.1 H Eos # (Auto) 0.3 Baso # (Auto) 0.0 Immature Gran # (Auto) 0.26 H Absolute Nucleated RBC 0.00 Immature Gran % 2 H Nucleated RBC % 0 Retic Count (auto) 2.4 H Absolute Retic 76.3 H Immature Retic Fraction 28.5 H Retic Hgb Content CHr 25.7 L PT 12.4 H INR 1.1 APTT 76.3 H D 61.3 H D Sodium 138 Potassium 4.2 D Chloride 101 Carbon Dioxide 29.1 Anion Gap 8 BUN 9 Creatinine 0.5 L Estim Creat Clear Calc 255.8 eGFR > 60 BUN/Creatinine Ratio 18 Glucose 99 Calculated Osmolality 274 L Calcium 8.8 Corrected Calcium 9.0 Iron 34 L TIBC 194 L Iron Saturation 17 L Unsat Iron Binding 160 L Total Bilirubin 0.3 AST 43 H ALT 50 H Alkaline Phosphatase 89 Total Protein 6.8 Albumin 3.7 D Globulin 3.1 Albumin/Globulin Ratio 1.2 Rheumatoid Factor Negative Quality Measures Quality Measures VTE therapy Assessment & Plan Assessment Current Active Medications: Generic Name Dose Route Start Last Admin Trade Name Freq PRN Reason Stop Dose Admin Acetaminophen 650 mg 07/20/24 02:10 Acetaminophen 325 Mg Tablet PO 08/19/24 02:09 Q6H PRN PAIN SCALE 1-3 (mild Clonidine 0.2 mg 07/20/24 09:00 07/21/24 08:18 Clonidine Hcl 0.1 Mg Tablet PO 08/19/24 08:59 0.2 mg QDAY DEV Administration Cyclobenzaprine HCl 5 mg 07/20/24 02:20 Cyclobenzaprine 5 Mg Tablet PO 08/19/24 05:59 TID PRN Dystonia. Muscle Rigidity Diphenhydramine HCl 25 mg 07/20/24 09:00 07/21/24 08:17 Diphenhydramine 25 Mg Capsule PO 08/19/24 08:59 25 mg BID DEV Administration Ondansetron HCl 4 mg 07/20/24 02:10 Ondansetron Inj 2 Mg/Ml Inj 2 Ml IV 08/19/24 02:09 Q6H PRN NAUSEA OR VOMITING Protocol Rivaroxaban 20 mg 07/22/24 08:00 Rivaroxaban 10 Mg Tablet PO 08/12/24 07:59 WBR DEV Rivaroxaban 10 mg/ Rivaroxaban 15 mg 07/21/24 11:00 07/21/24 11:11 5 mg PO 07/22/24 00:00 15 mg BIDWM DEV Administration Sennosides 1 tab 07/20/24 02:10 Senna Tablet PO 08/19/24 02:09 QDAY PRN constipation Protocol Plan 29-year-old male with past medical history anemia of chronic disease, dystonia, schizophrenia, history of syphilis infection and psychiatric incarceration at [facility] presents with bilateral lower extremity pain will be admitted for hypercoagulable workup along with heparin drip for the bilateral DVT; cardiology has been consulted appreciate recommendations. #Unprovoked DVT #Bilateral Lower Extremities DVT #Thrombocytosis, likely reactive Patient has been having bilateral lower extremity for at least the past 1 week; describes it as aching/squeezing sensation at the joints of the lower extremities Patient has not been bedbound; is able to ambulate without issue Patient denies having any surgeries recently or at any time Patient apparently presented on 07/10 with bilateral lower extremity pain, D- dimer was elevated at that time as; CTA of chest showed no PE, no venous Doppler ultrasound was done at that time Patient was discharged with bilateral lower extremity pain believed to be secondary to musculoskeletal versus neurologic/EPS like presentation Patient then presented on 07/13 with, constipation at that time D-dimer was also elevated. Patient presents on 07/19 with bilateral lower extremity pain Venous Doppler US showed severe bilateral occlusive deep vein thrombus right and left lower extremities ESR and CRP are elevated -acute DVT versus underlying autoimmune. Hepatitis, HIV, rheumatoid factor came back. Plan: Hypercoagulable studies, extensive workup was ordered; however, patient was started on heparin drip. Heparin drip was discontinued and started on oral rivaroxaban Cardiology consulted (Dr. Manuel), appreciate recommendations CT A/P ordered to rule out any intraabdominal mass #Anemia of Chronic Disease Iron studies from the past show very low iron; however, elevated ferritin Plan: Recommended to follow-up in outpatient setting for further workup #Mild Leukocytosis Likely secondary to acutely ill status Chest x-ray does not show any acute process Patient denies having any fever/chills, dysuria or any new skin changes/rashes Will continue to monitor CBC #?Syphilis Patient tested positive on initial test outpatient, confirmatory T. pallidum Ab pending Will give penicillin G 2.4MMU IM x1; can get 2 more doses over next 2 weeks to complete treatment #Schizophrenia Patient apparently has history of schizophrenia; on paliperidone IM 170 mg every 4 weeks (last dose 07/15) Patient also takes clonidine 0.2 mg p.o. daily Plan: Will continue clonidine as above #Dystonia Patient on home diphenhydramine 25 mg p.o. twice daily and cyclobenzaprine 10 mg 3 times daily as needed Plan: Restarted the above home medications Hospital Management: Lines: PIV Bowel: Senna as needed Diet: Regular GI prophylaxis: Not needed DVT prophylaxis: Rivaroxaban Dispo: Telemetry Code: Full Patient plan of care was discussed with the attending physician, Dr. Maya and senior resident Dr. Jannet Lund, PGY1 Attending Provider Attestation/Addendum I reviewed labs, imaging, EKG, home medications and prior available records. Face to face evaluation was performed by me. I have personally examined the patient and discussed assessment and plan with the IM team. I reviewed the resident note and agree with the plan with exceptions as below. Acute unprovoked DVT of bilateral lower extremities: Extensive. Etiology is unclear. Concern for malignancy. Started the patient on heparin drip. Monitor for bleeding. I had a lengthy discussion with the patient's primary care provider who expressed his concerns about symptoms of constipation and weight loss that are recent and new. Ordered CT scan of the abdomen/pelvis with IV contrast. Chronic anemia: Etiology is unclear. Normocytic. No signs of active bleeding. Monitor H&H.
[2024-07-22] VITALS (7 sets, daily range): BP systolic 90–117; BP diastolic 54–81; PULSE 94–116; RESP 15–19; TEMP 36.3–36.8; O2SAT 93–99
[2024-07-22 06:14] LABS: Basophils % (Auto) 0 % (0-2.5); Eosinophils # (Auto) 0.2 Thou/mm3 (0.0-0.5); Eosinophils % (Auto) 2 % (0-10); Hematocrit 27.3 % (41.0-53.0); Hemoglobin 8.6 g/dL (13.5-16.0); Immature Granulocytes % (Auto) 2 % (0-0); Immature Granulocytes Auto 0.24 Thou/mm3 (0.00-0.00); Lymphocytes # (Auto) 1.1 Thou/mm3 (1.0-4.8); Lymphocytes % (Auto) 9 % (10-50); Mean Corpuscular HGB Conc 31.5 g/dl (31.0-37.0); Mean Corpuscular Hemoglobin 26.9 pg (25.0-35.0); Mean Corpuscular Volume 85 fL (80-100); Monocytes # (Auto) 1.1 Thou/mm3 (0.0-0.8); Monocytes % (Auto) 9 % (0-12); Neutrophils # (Auto) 9.5 Thou/mm3 (1.8-7.7); Neutrophils % (Auto) 78 % (37-80); Nucleated Red Blood Cell % 0 /100 WBC (0); Platelet Count 650 Thou/mm3 (140-440); RDW Standard Deviation 43.8 fL (35.1-43.9); White Blood Count 12.2 Thou/mm3 (3.8-10.6)
[2024-07-22 06:18] LABS: Partial Thromboplastin Time 31.9 Seconds (22.0-36.0)
[2024-07-22 06:31] LABS: Alanine Aminotransferase 44 U/L (10-49); Albumin/Globulin Ratio 1.1 (1.2-2.2); Alkaline Phosphatase 91 U/L (46-116); Anion Gap 6 (7-16); Aspartate Amino Transferase 31 U/L (0-34); BUN/Creatinine Ratio 17 Ratio (12-20); Bilirubin,Total 0.4 mg/dL (0.3-1.2); Blood Urea Nitrogen 10 mg/dL (9-23); Calcium 9.2 mg/dL (8.3-10.6); Calcium (Corrected) 9.2 mg/dL (8.5-10.1); Carbon Dioxide 30.2 mMol/L (20.0-31.0); Chloride 101 mMol/L (98-107); Creatinine (Component) 0.6 mg/dL (0.6-1.3); Estimated Creatinine Clearance 213.2 mL/min (>60); Globulin 3.7 gm/dL (2.3-3.5); Glucose 93 mg/dL (74-106); Osmolality,Calculated 272 (275-295); Sodium 137 mMol/L (136-145); Total Protein 7.7 gm/dL (5.7-8.2); eGFR > 60 See Note
[2024-07-22] MEDS: cloNIDine HCL 0.1 MG TABLET 0.2 MG PO (08:01)
[2024-07-22] MEDS: DiphenhydrAMINE 25 MG CAPSULE PO (08:03)
[2024-07-22] MEDS: RIVAROXABAN 10 MG TABLET 20 MG PO (08:03)
[2024-07-22 08:42] LABS: AFP Non-Pregnant < 0.00 ng/mL (<8.10); Carcinoembryonic Antigen < 0.5 ng/mL (0.0-5.0)
--- NOTE | 2024-07-22 12:24 | PD.ONCCONS ---
HPI Data of Consult Requesting Physician: Ander Maya MD Primary Care Provider: Anderson Villagomez MD Consult Narrative Reason for consult: Suspected malignant lesions abdomen History of present illness: Patient is a 29-year-old [facility] client under psych incarceration with history of schizophrenia since syphilis infection anemia of chronic disease. Initially incarcerated in [facility] but has been at [facility] for the past 3 months. Patient is developed bilateral lower extremity pain and chest CT 07/13/2024 showed no pulmonary emboli. 07/23/2024 showed severe bilateral occlusive DVT right and lower extremities. Abdominal pelvic CT revealed subcentimeter periodic lymph nodes along with bilateral pelvic venous structures. Patient currently receiving anticoagulation initially heparin drip and started on oral rivaroxaban. Patient now referred for oncological consultation. cc:: cc: Ander Maya MD Past Medical History Family History OTHER FAMILY HX: Noncontributory Social History SOCIAL: Patient under psychiatric incarceration a [facility] raised in the [facility] with family in [place]. Denies smoking or drinking. Past Medical History Comments PMH COMMENT: History of schizophrenia anemia chronic disease dystonia syphilis infection Meds Home Medications and Allergies Home Medications ?Medication ?Instructions ?Recorded ?Confirmed ?Type acetaminophen 650 mg tablet 650 mg PO Q6H PRN Fever Or Pain 07/20/24 07/20/24 History clonidine HCl 0.1 mg-0.2 mg 0.2 mg PO DAILY 07/20/24 07/20/24 History tablet,extended release dose pack cyclobenzaprine 10 mg tablet 10 mg PO Q8HR PRN leg cramps 07/20/24 07/20/24 History diphenhydramine HCl 25 mg capsule 25 mg PO BID 07/20/24 07/20/24 History docusate sodium 100 mg capsule 200 mg PO BID 07/20/24 07/20/24 History lactulose 10 gram/15 mL oral syrup 10 g PO BID 07/20/24 07/20/24 History paliperidone palmitate 117 mg/0.75 117 mg QMONTH 07/20/24 07/20/24 History mL intramuscular syringe polyethylene glycol 3350 17 gram 17 g PO BID 07/20/24 07/20/24 History oral powder packet (Miralax) Allergies Allergy/AdvReac Type Severity Reaction Status Date / Time No Known Allergies Allergy Verified 07/10/24 10:48 Exam Vital Signs Temp Pulse Resp BP Pulse Ox O2 Del Method 97.5 F 96 19 117/80 93 L Room Air 07/22/24 08:00 07/22/24 08:01 07/22/24 08:00 07/22/24 08:01 07/22/24 08:00 07/22/24 08:00 Narrative Exam Appears comfortable having lunch. Results Labs 07/22/24 04:26 07/22/24 04:26 Labs: Short CBC 07/22/24 Range/Units 04:26 WBC 12.2 H (3.8-10.6) Thou/mm3 Hgb 8.6 L (13.5-16.0) g/dL Hct 27.3 L (41.0-53.0) % Plt Count 650 H D (140-440) Thou/mm3 BMP 07/22/24 04:26 Sodium 137 Potassium 4.0 Chloride 101 Carbon Dioxide 30.2 BUN 10 Creatinine 0.6 Glucose 93 Calcium 9.2 Liver Function 07/22/24 Range/Units 04:26 Total Bilirubin 0.4 (0.3-1.2) mg/dL AST 31 (0-34) U/L ALT 44 (10-49) U/L Alkaline Phosphatase 91 (46-116) U/L Albumin 4.0 (3.5-5.0) gm/dL Assessment and Plan Additional Assessment & Plan Additional Plan: 1. Bilateral lower extremity DVT receiving anticoagulation 2. Subcentimeter para-aortic lymph nodes noted on CT of abdomen. 3. Took the liberty of ordering common tumor markers. 3. Can follow patient upon discharge including ordering PET imaging studies which is considered an outpatient studies. 5. Will also try to have set up machinist Dr. Hassan see patient regarding his hypercoagulable state.
--- NOTE | 2024-07-22 12:25 | PC.NURSE ---
update given to Felisha at [facility]
--- NOTE | 2024-07-22 12:47 | PC.PT ---
Patient already got up to shower xI today as per [employer]. Patient will be D/C from PT services secondary to he is at his PLOF.
--- NOTE | 2024-07-22 16:12 | PC.NURSE ---
spoke to senior charge nurse Porter on [facility] [address], would not take report they are gonna have there house sup call back to see if they are gonna except pt back
--- NOTE | 2024-07-22 16:20 | PC.NURSE ---
Felisha from [facility] called back, report given to her, she will call the director of restaurant operations MD
--- NOTE | 2024-07-22 16:30 | PC.NURSE ---
pt is ok to return [facility]
--- NOTE | 2024-07-22 16:53 | ESDS_ITS ---
<Statement entered by Lluvia Power MD - 07/23/24 07:32> Patient was seen and examined by me personally. I agree with the discharge plan as discussed with the sports intern physician, and my attending, Dr. Maya. Lluvia Power MD, PGY-3 Planned Discharge Date 07/22/24 DS: Providers Provider Date of admission: 07/20/24 02:10 Primary care physician: Anderson Villagomez MD Admitting Provider: Buck Decker MD Attending Provider on Admission: Ander Maya MD Consults: 07/20/24 02:23 Consult to Cardiology Routine Comment: Consulting Provider: Daphne Manuel Instructions: B/L DVT, unprovoked 07/20/24 15:35 Referral Physical Therapy Routine Comment: Physician Instructions: 07/22/24 08:05 Consult to Oncology Stat Comment: lymphoadenopathy, anemia, colon? Lymphoma? Consulting Provider: Surendra Ramey 07/22/24 13:33 Consult to Hematology Stat Comment: for anemia and thrombocytosis Consulting Provider: Alfonzo Montes Attending Provider on DC: Reggie Lund MD Discharging Provider: Reggie Lund MD DS: Diagnosis Problem List Completed Was Problem List Reviewed/Reconciled?: Yes Hospital Course Hospital Course Hospital course: Patient is a 29-year-old [facility] client under psych incarceration with history of schizophrenia, dystonia, syphilis [facility] with chief complaints of lower extremity pain and diagnosed to have B/L lower extremity DVT. Patient was incarcerated in [facility] but recently shifted to [facility] and living there for the past 3 months. Patient came with a similar complaints on 07/13/[address] chest done at that time did not show any pulmonary emboli, patient was discharged to his facility at that time. Labs showed iron deficiency anemia, thrombocytosis. Tested positive for syphilis. Hypercoagulation workup was done and results are pending. CEA and AFP came back negative venous Doppler of lower extremity showed bilateral occlusive deep venous thrombosis. Patient was started on heparin drip. Abdominal pelvic CT revealed subcentimeter periodic lymph nodes along with bilateral pelvic venous structures. Heparin drip is stopped and changed to rivaroxaban. A dose of penicillin was given for syphilis. Dr. Ramey was consulted and recommended further workup on outpatient basis. Also recom mended to follow him oncologist to rule out the cause of anemia. Per competitive athlete, patient was completely ambulatory at the [facility] but over the past 20 days patient is crawling. Physical therapy is done in the hospital. Patient was discharged back to [facility] with the following medications and recommendation -Follow up with PCP within 1 week of discharge -Take Xarelto as prescribed. Watch for bleeding while on blood thinner. -Encourage exercise and ambulation -Return to ED if symptoms persist or worsens - Follow up Dr. Ramey in 2 weeks - Follow ip Dr. Montes in 2 weeks #Unprovoked DVT Bilateral Lower Extremities DVT #Thrombocytosis, likely reactive #Anemia of Chronic Disease #Syphilis #Schizophrenia #Dystonia Patient plan of care was discussed with the attending physician, Dr. Maya and senior resident Dr. Jannet Lund, PGY1 Time Spent with Patient Time attestation: Total time spent providing and/or coordinating discharge services: Time spent: Greater than 30 minutes Exam Vital Signs Temp Pulse Resp BP Pulse Ox O2 Del Method 97.4 F 98 18 90/54 L 98 Room Air 07/22/24 15:53 07/22/24 16:00 07/22/24 15:53 07/22/24 15:53 07/22/24 15:53 07/22/24 15:53 Narrative Exam General: Awake and in no acute distress. HEENT: Normocephalic, atraumatic, mucous membranes moist. Heart: Regular rate and rhythm, no murmurs. Lungs: Clear to auscultation with no wheezing or crackles. Abdomen: Soft, nondistended, nontender, positive bowel sounds. ?No guarding or rebound tenderness. Neurologic: Alert and oriented x3, no gross neurological deficit, and patient able to move all 4 extremities. But patient is crawling as he is not able to keep his leg straight Extremities: No edema. Skin: No rash or ecchymoses. Discharge Plan Plan Patient Disposition: Xfer Skilled Nsg Fac (SNF) Patient condition on transfer: Stable Care Plan Goals: Patient will need IM Penicillin G 2.4MMU weekly for another 2 weeks to complete treatment for syphilis. Take Xarelto over 3 months WITH MEALS - 15mg twice daily x 21 days, then 20mg daily, to complete 3 months Please follow up with your primary care provider within 1 week. If you cannot obtain an appointment, please call the [facility] at [phone] and follow up with Dr. Lund. Prescriptions/Referrals Prescriptions/Med Rec: New Xarelto DVT-PE Treat 30d Start 15 mg (42)- 20 mg (9) tablets,dose pack See Rx Instructions .ROUTE .COMPLEX Qty: 51 0RF Rx Instructions: take one-15 mg tablet twice daily for 21 days, then one-20 mg tablet once daily; must take with meal/food Continued cyclobenzaprine 10 mg Tablet 10 mg PO Q8HR PRN (Reason: leg cramps) lactulose 10 gram/15 mL Syrup 10 g PO BID polyethylene glycol 3350 [Miralax] 17 gram Powder In Packet 17 g PO BID acetaminophen 650 mg Tablet 650 mg PO Q6H PRN (Reason: Fever Or Pain) diphenhydramine HCl 25 mg Capsule 25 mg PO BID docusate sodium 100 mg Capsule 200 mg PO BID paliperidone palmitate 117 mg/0.75 mL Syringe 117 mg QMONTH clonidine HCl 0.1-0.2 mg Tablet Extended Rel,Dose Pack 0.2 mg PO DAILY Referrals: Alfonzo Montes MD [Physician] - Surendra Ramey MD [Physician] - Anderson Ashby MD [Primary Care Provider] - Patient/Caregiver Discharge Instructions Discharge Activity: as per physical therapy Other Discharge Activity Instructions:: -Follow up with PCP within 1 week of discharge -Take Xarelto as prescribed. Watch for bleeding while on blood thinner. -Encourage exercise and ambulation -Return to ED if symptoms persist or worsens - Follow up Dr. Ramey in 2 weeks - Follow ip Dr. Montes in 2 weeks Patient will need IM Penicillin G 2.4MMU weekly for another 2 weeks to complete treatment for syphilis. Complete xarelto over 3 months as per starter pack instructions (15mg twice daily x 21 days; 20mg daily to complete 3 months) Please follow up with your primary care provider within 1 week. If you cannot obtain an appointment, please call the [facility] at [phone] and follow up with Dr. Lund. Education Materials: Understanding Deep Vein Thrombosis, DVT Complications, Preventing Deep Vein Thrombosis Print Language: Turkish Stand Alone Forms: [employer] Patient Portal Info Letter Discharge Order Discharge Orders: Discharge (Routine); Ordered 07/22/24 Ordered By: Yrn White Quality Discharge Quality Measures VTE therapy Attestestation MD Attestation I reviewed labs, imaging, EKG, home medications and prior available records. Face to face evaluation was performed by me. I have personally examined the patient and discussed assessment and plan with the IM team. I reviewed the resident note and agree with the plan with exceptions as below. Acute unprovoked DVT of bilateral lower extremities: Extensive. Etiology is unclear. Concern for malignancy. Ordered CT scan of the abdomen/pelvis with IV contrast that showed lymphadenopathy. Consulted oncology: Recommended outpatient PET scan. Follow-up with oncology as outpatient. Xarelto on discharge. Chronic anemia: Etiology is unclear. Normocytic. No signs of active bleeding. Monitor H&H. Outpatient follow-up with hematology. Syphilis: He was tested positive for syphilis. Gave IV penicillin. Time spent is 40 minutes. More than 50% of the time was spent on patient education and coordination of care.
[2024-07-23 06:53] LABS: Protein C Activity* 146 % normal (70-180)
[2024-07-26 06:53] LABS: Protein C Antigen, Total* 97 % normal (70-140); Protein S Activity* 60 % normal (70-150); Protein S Antigen, Total* 126 % normal (70-140)
[2024-07-27 06:26] LABS: CA 19-9 Antigen* 19 U/mL (<34)
[2024-07-27 19:46] LABS: Cardiolipin Ab IgA <2.0 APL-U/mL; Cardiolipin Ab IgG <2.0 GPL-U/mL
[2024-07-28 07:02] LABS: Factor V Leiden Mutation NEGATIVE; Homocysteine* 10.5 umol/L (<11.4)
[2024-07-28 07:03] LABS: B2-Glycoprotein I Ab IgA <2.0 U/mL; B2-Glycoprotein I Ab IgG <2.0 U/mL; B2-Glycoprotein I Ab IgM 3.4 U/mL; Cardiolipin Ab IgM 4.1 MPL-U/mL; Phos.Serine Ab IgG 34 U (< OR = 30); Phos.Serine Ab IgM 12 U (< OR = 30)
== END 2024-07-22 17:38 | disposition other institution (70) | DRG 301 ==
LOC: SERX 07-20 00:35 → SERHOLD 07-20 03:07 → S3NX 07-20 05:08
PROVIDERS: Internal Medicine; Radiology Therapeutic Radiology; Student in an Organized Health Care Education/Training Program; Admitting Provider Internal Medicine; Emergency Provider Emergency Medicine; Visit Provider Student in an Organized Health Care Education/Training Program
DX: I82.403 Acute embolism and thrombosis of unspecified deep veins of lower extremity, bilateral (principal); G24.9 Dystonia, unspecified; A53.9 Syphilis, unspecified; D50.9 Iron deficiency anemia, unspecified; D72.829 Elevated white blood cell count, unspecified; D75.838 Other thrombocytosis; Z79.899 Other long term (current) drug therapy
CPT/HCPCS: 36415; 71045; 74177; 80053; 80061; 80074; 81241; 82105; 82378; 83090; 83540; 83550; 83690; 83735; 83880; 84100; 84443; 84484; 85025; 85046; 85302; 85303; 85305; 85306; 85610; 85652; 85730; 86140; 86146; 86147; 86148; 86301; 86430; 86703; 93005; 93970; 97162; 99285; A4649; J0561; J1643; J1644; J2540; Q9967; A9270

== ENCOUNTER → 2024-09-13 | Outpatient (CLI) | payer OTHER, SELFPAY ==
--- NOTE | 2024-09-13 13:22 | XR_ITS ---
EXAMINATION: PET/CT FUSION SKULL TO THIGH EXAM DATE AND TIME: September 13, 2024 1521 hours INDICATIONS: Diagnosis lymphoma staging prior to treatment CTDI:vol (mGy) 4.1 DLP: (mGycm) 425.15 PROCEDURE: 15.45 mCi FDG was administered intravenously To allow for distribution and uptake of radiotracer, the patient was allowed to rest quietly in a shielded room. Imaging was performed on an integrated 16-slice PET/CT scanner, with scanning from the skull base to the mid thigh. Serum blood glucose at the time of the injection was measured 85 mg/dL. CT scanning was performed without oral or intravenous contrast material. FINDINGS: Head and Neck: There is no jose luis hypermetabolism in the neck. The visualized portions of the brain are normal in appearance on CT. Chest: There is no jose luis hypermetabolism in the chest. There are no pulmonary nodules. Abdomen and Pelvis: Suspicious for multiple non hypermetabolic left lateral periaortic lymph nodes measuring up to 8 mm,. Muscle activity in the groin on the right side Hypermetabolic calcified mass anterior medial proximal femur, 27 mm, axial image 85 Musculoskeletal: Marrow uptake is within normal range. IMPRESSION: Subcentimeter non hypermetabolic abdominal lymphadenopathy is confirmed 27 mm calcified hypermetabolic mass contiguous with the medial anterior proximal left femur, recommend MRI left femur follow-up pre and postcontrast
== END | disposition home or self-care (01) ==
PROVIDERS: PCP Internal Medicine; Referring Provider Internal Medicine; Visit Provider Internal Medicine
DX: R59.0 Localized enlarged lymph nodes (principal); R22.42 Localized swelling, mass and lump, left lower limb
CPT/HCPCS: 78815; A9552